=== PATIENT | male | born 1965 | race Hispanic/Latino ===

== ENCOUNTER 2021-08-27 06:25 | Inpatient (IN) | payer SELFPAY ==
--- NOTE | 2021-08-27 07:04 | EDM.PDOC ---
ED HPI GENERAL MEDICAL PROBLEM - General Chief Complaint: Respiratory Problem Stated Complaint: [facility] AMB Time Seen by Provider: 08/27/21 07:04 Source of Information: Reports: Patient History Limitations: Reports: No Limitations - History of Present Illness INITIAL COMMENTS - FREE TEXT/NARRATIVE: 56-year-old male of [place] descent presents to the ED feeling ill he states for the last 25 days. It is hard to correlate when his actual symptoms started with fever chills headache. He states initially he did have a headache and had some diarrhea. Cough started within 3 days and he continues to cough with minimal sputum production. White in color. Complete loss of appetite with weight loss. He feels very thirsty lightheaded and dizzy upon standing. Generalized weakness. Still has generalized body aches and fever. No further nausea vomiting or diarrhea. O2 sats upon arrival were 81% on room air. He works as a national dedicated truck driver hauling cattle. He is unvaccinated. Onset: Unknown/Unsure (Difficult to pin down for sure when he developed symptoms of COVID-19 illness.) Duration: Day(s):, Getting Worse Location: Reports: Chest (Chest congestion with paroxysmal intermittent cough minimally producing white sputum), Generalized, Other (Generalized weakness anorexia). Denies: Head (No headache) Quality: Reports: Ache, Throbbing Severity: Moderate Improves with: Reports: None Worsens with: Reports: Movement Context: Reports: Other (Spontaneous occurrence of illness.). Denies: Activity, Exercise, Lifting, Sick Contact, Trauma Associated Symptoms: Reports: Fever/Chills ( He is unmarried and no one at home is ill.), Headaches, Loss of Appetite, Malaise, Shortness of Breath, Weakness. Denies: No Other Symptoms, Nausea/Vomiting, Rash, Seizure Treatments [employer]EL[employer]: Reports: Acetaminophen, Oxygen - Related Data Allergies Allergy/AdvReac Type Severity Reaction Status Date / Time No Known Allergies Allergy Verified 08/27/21 06:42 Home Meds: Home Meds . [No Known Home Meds] 08/23/14 [History] Past Medical History - Past Health History Medical/Surgical History: Denies Medical/Surgical History HEENT History: Reports: None Cardiovascular History: Reports: None Respiratory History: Reports: None Gastrointestinal History: Reports: None Genitourinary History: Reports: None Musculoskeletal History: Reports: None Neurological History: Reports: None Psychiatric History: Reports: None Endocrine/Metabolic History: Reports: None Hematologic History: Reports: None Immunologic History: Reports: None Oncologic (Cancer) History: Reports: None Dermatologic History: Reports: None - Infectious Disease History Infectious Disease History: Reports: None - Past Surgical History Head Surgeries/Procedures: Reports: None Male Surgical History: Reports: None Social & Family History - Family History Family Medical History: No Pertinent Family History - Tobacco Use Tobacco Use Status *Q: Never Tobacco User - Caffeine Use Caffeine Use: Reports: Soda - Recreational Drug Use Recreational Drug Use: No - Living Situation & Occupation Living situation: Reports: Single Occupation: Unemployed ED ROS GENERAL - Review of Systems Review Of Systems: See Below Constitutional: Reports: Fever, Chills, Malaise, Weakness, Fatigue, Decreased Appetite, Weight Loss HEENT: Reports: Throat Pain Respiratory: Reports: Shortness of Breath, Cough, Sputum (Occasional white sputum production). Denies: Wheezing, Pleuritic Chest Pain Cardiovascular: Reports: Dyspnea on Exertion, Lightheadedness. Denies: Chest Pain, Claudication, Edema, Orthopnea, Palpitations Endocrine: Reports: Fatigue GI/Abdominal: Reports: Diarrhea (Diarrhea initial illness but not now.), Decreased Appetite, Nausea (Occasional nausea). Denies: Vomiting : Reports: Other (Urine is dark nicole in color) Musculoskeletal: Reports: Muscle Pain (Generalized myalgia particular upper neck muscles low back and thighs) Skin: Reports: No Symptoms Neurological: Reports: Dizziness, Weakness. Denies: Headache, Syncope Psychiatric: Reports: No Symptoms ED EXAM, GENERAL - Physical Exam Exam: See Below Exam Limited By: Language Barrier (Mild language barrier. This patient is [place] descent but he understands [place]ese very well) General Appearance: Alert, WD/WN, Moderate Distress, Other (He is very warm to palpation. Nurses recorded temperature is 36.4 but he feels much warmer than this. Heart rate is 110 and sinus at the bedside. Respiratory is 26 to 30/min with O2 sats of 81 to 86% on room air. He arrives with a nonrebreather mask placed by paramedics at 15 L to maintain sats ) Eye Exam: Bilateral Eye: Normal Inspection, PERRL Ears: Normal TMs Throat/Mouth: Other (Diffuse mild erythema of the oropharynx without exudate.) Head: Atraumatic, Normocephalic Neck: Normal Inspection, Supple, Non-Tender, Full Range of Motion. No: Carotid Bruit, Lymphadenopathy (L), Lymphadenopathy (R) Respiratory/Chest: Lungs Clear, Normal Breath Sounds, No Accessory Muscle Use, Respiratory Distress (Tachypnea at rest. Hypoxia on room air.), Decreased Breath Sounds (Mildly decreased breath sounds to the) Cardiovascular: Normal Peripheral Pulses, No Edema, No Gallop (Sinus tachycardia), No Murmur ( posterior 20% of the lung stokes bilaterally.), No Rub, Tachycardia. No: Regular Rate, Rhythm Peripheral Pulses: 3+: Carotid (L), Carotid (R), Posterior Tibial (L), Posterior Tibial (R), Dorsalis Pedis (L), Dorsalis Pedis (R) GI/Abdominal: Normal Bowel Sounds, Soft, Non-Tender, No Organomegaly, No Mass, Pelvis Stable, Other (No surgical scars) (Male) Exam: No Hernia Back Exam: Normal Inspection, Full Range of Motion. No: CVA Tenderness (L), CVA Tenderness (R) Extremities: Normal Inspection, Normal Range of Motion, Non-Tender, No Pedal Edema Neurological: Alert, Oriented, CN II-XII Intact, Normal Cognition, No Motor/Sensory Deficits Psychiatric: Anxious Skin Exam: Warm, Dry, Intact, Normal Color, No Rash #1 Interpretation EKG Date: 08/27/21 Time: 07:25 Rhythm: Other (Sinus tachycardia) Rate (Beats/Min): 103 [place]: Normal P-Wave: Present QRS: Other (Early R wave transition consider right ventricular hypertrophy versus septal hypertrophy pattern.) ST-T: Other (For culture interpret aVF lead due to very small amplitude) QT: Prolonged (Mildly prolonged) EKG Interpretation Comments: Abnormal ECG Course - Vital Signs Last Recorded V/S: Last Vital Signs Temp 36.4 C 08/27/21 18:39 Pulse 80 08/27/21 18:39 Resp 39 H 08/27/21 18:39 BP 136/94 H 08/27/21 18:39 Pulse Ox 91 L 08/27/21 18:39 - Orders/Labs/Meds Orders: Active Orders 24 hr Category Date Time Status Sodium Chloride 0.9% [Saline Flush] Med 08/27/21 08:05 Active 10 ml FLUSH ONETIME PRN Medication Orders Acetaminophen (Acetaminophen 325 Mg Tab) 650 mg PO Q4H PRN PRN Reason: Pain (Mild 1-3)/fever Albuterol/Ipratropium (Albuterol/Ipratropium 3.0-0.5 Mg/3 Ml Neb Soln) 3 ml NEB Q4H PRN PRN Reason: Shortness Of Breath/wheezing Last Admin: 08/27/21 16:18 Dose: 3 ml Documented by: JERE Apixaban (Apixaban 5 Mg Tab) 10 mg PO BID [facility] Baricitinib (Baricitinib 2 Mg Tab) 4 mg PO Q24H [facility] Stop: 09/09/21 15:01 Last Admin: 08/27/21 16:37 Dose: 4 mg Documented by: LAN Dexamethasone (Dexamethasone 4 Mg Tab) 6 mg PO DAILY [facility] Docusate Sodium (Docusate Sodium 100 Mg Cap) 100 mg PO BID PRN PRN Reason: Constipation Remdesivir 100 mg/ Sodium (Chloride) 100 mls @ 100 mls/hr IV Q24H [facility] Stop: 08/31/21 10:59 Ceftriaxone Sodium 2 gm/ (Sodium Chloride) 100 mls @ 200 mls/hr IV Q24H [facility] Last Admin: 08/27/21 16:29 Dose: 200 mls/hr Documented by: LAN Sodium Chloride (Normal Saline) 1,000 mls @ 75 mls/hr IV ASDIRECTED [facility] Last Admin: 08/27/21 18:54 Dose: 75 mls/hr Documented by: LAN Morphine Sulfate (Morphine 2 Mg/Ml Syringe) 2 mg IVPUSH Q2H PRN PRN Reason: Pain (severe 7-10) Stop: 08/28/21 13:10 Ondansetron HCl (Ondansetron 4 Mg Tab.Dis) 4 mg PO Q4H PRN PRN Reason: nausea, able to take PO Oxycodone HCl (Oxycodone 5 Mg Tab) 5 mg PO Q4H PRN PRN Reason: Pain (moderate 4-6) Sodium Chloride (Sodium Chloride 0.9% 10 Ml Syringe) 10 ml FLUSH ONETIME PRN PRN Reason: IV FLUSH Last Admin: 08/27/21 08:49 Dose: 10 ml Documented by: MARIA E Temazepam (Temazepam 15 Mg Cap) 15 mg PO BEDTIME PRN PRN Reason: Sleep Labs: Laboratory Tests 08/27/21 08/27/21 08/27/21 Range/Units 06:40 06:42 06:42 WBC 10.41 H (4.23-9.07) K/mm3 RBC 5.38 (4.63-6.08) M/mm3 Hgb 15.9 (13.7-17.5) gm/dl Hct 45.9 (40.1-51.0) % MCV 85.3 (79.0-92.2) fl MCH 29.6 (25.7-32.2) pg MCHC 34.6 (32.2-35.5) g/dl RDW Std Deviation 44.0 H (35.1-43.9) fL Plt Count 316 (163-337) K/mm3 MPV 10.1 (9.4-12.3) fl Neut % (Auto) 88.7 H (34.0-67.9) % Lymph % (Auto) 7.2 L (21.8-53.1) % Hendricks % (Auto) 2.6 L (5.3-12.2) % Eos % (Auto) 0.8 (0.8-7.0) Baso % (Auto) 0.2 (0.1-1.2) % Neut # (Auto) 9.24 H (1.78-5.38) K/mm3 Lymph # (Auto) 0.75 L (1.32-3.57) K/mm3 Hendricks # (Auto) 0.27 L (0.30-0.82) K/mm3 Eos # (Auto) 0.08 (0.04-0.54) K/mm3 Baso # (Auto) 0.02 (0.01-0.08) K/mm3 Manual Slide Review Abnormal smear D-Dimer, Quantitative (0.19-0.50) mg/L Puncture Site ABG pH (7.35-7.45) ABG pCO2 (35.0-45.0) mmHg ABG pO2 (80.0-100.0) mmHg ABG HCO3 (22.0-26.0) meq/L ABG O2 Saturation (96.0-97.0) % ABG Base Excess (-2-2.0) Antonio Test A-a Gradient mmHg O2 Delivery Device Oxygen Flow Rate FiO2 (21.00-100.00) % Sodium 133 L (136-145) mEq/L Potassium 3.7 (3.5-5.1) mEq/L Chloride 98 (98-107) mEq/L Carbon Dioxide 26 (21-32) mEq/L Anion Gap 12.7 (5-15) BUN 20 H (7-18) mg/dL Creatinine 1.1 (0.7-1.3) mg/dL Est Cr Clr Drug Dosing 70.94 mL/min Estimated GFR (MDRD) > 60 (>60) mL/min BUN/Creatinine Ratio 18.2 H (14-18) Glucose 133 H (70-99) mg/dL Lactic Acid (0.4-2.0) mmol/L Calcium 8.2 L (8.5-10.1) mg/dL Magnesium 2.5 H (1.8-2.4) mg/dL Total Bilirubin 0.9 (0.2-1.0) mg/dL AST 68 H (15-37) U/L ALT 83 H (16-63) U/L Alkaline Phosphatase 61 (46-116) U/L Lactate Dehydrogenase 697 H (85-227) U/L Troponin I < 0.017 (0.00-0.056) ng/mL C-Reactive Protein 20.3 H* (<1.0) mg/dL NT-Pro-B Natriuret Pep (0-125) pg/mL Total Protein 7.6 (6.4-8.2) g/dl Albumin 2.4 L (3.4-5.0) g/dl Globulin 5.2 gm/dL Albumin/Globulin Ratio 0.5 L (1-2) Influenza Type A RNA Negative (NEGATIVE) Influenza Type B RNA Negative (NEGATIVE) SARS-CoV-2 RNA (REBECCA) Positive H (NEGATIVE) 08/27/21 08/27/21 08/27/21 Range/Units 06:42 06:42 07:15 WBC (4.23-9.07) K/mm3 RBC (4.63-6.08) M/mm3 Hgb (13.7-17.5) gm/dl Hct (40.1-51.0) % MCV (79.0-92.2) fl MCH (25.7-32.2) pg MCHC (32.2-35.5) g/dl RDW Std Deviation (35.1-43.9) fL Plt Count (163-337) K/mm3 MPV (9.4-12.3) fl Neut % (Auto) (34.0-67.9) % Lymph % (Auto) (21.8-53.1) % Hendricks % (Auto) (5.3-12.2) % Eos % (Auto) (0.8-7.0) Baso % (Auto) (0.1-1.2) % Neut # (Auto) (1.78-5.38) K/mm3 Lymph # (Auto) (1.32-3.57) K/mm3 Hendricks # (Auto) (0.30-0.82) K/mm3 Eos # (Auto) (0.04-0.54) K/mm3 Baso # (Auto) (0.01-0.08) K/mm3 Manual Slide Review D-Dimer, Quantitative 14.22 H (0.19-0.50) mg/L Puncture Site ABG pH (7.35-7.45) ABG pCO2 (35.0-45.0) mmHg ABG pO2 (80.0-100.0) mmHg ABG HCO3 (22.0-26.0) meq/L ABG O2 Saturation (96.0-97.0) % ABG Base Excess (-2-2.0) Antonio Test A-a Gradient mmHg O2 Delivery Device Oxygen Flow Rate FiO2 (21.00-100.00) % Sodium (136-145) mEq/L Potassium (3.5-5.1) mEq/L Chloride (98-107) mEq/L Carbon Dioxide (21-32) mEq/L Anion Gap (5-15) BUN (7-18) mg/dL Creatinine (0.7-1.3) mg/dL Est Cr Clr Drug Dosing mL/min Estimated GFR (MDRD) (>60) mL/min BUN/Creatinine Ratio (14-18) Glucose (70-99) mg/dL Lactic Acid 2.1 H* (0.4-2.0) mmol/L Calcium (8.5-10.1) mg/dL Magnesium (1.8-2.4) mg/dL Total Bilirubin (0.2-1.0) mg/dL AST (15-37) U/L ALT (16-63) U/L Alkaline Phosphatase (46-116) U/L Lactate Dehydrogenase (85-227) U/L Troponin I (0.00-0.056) ng/mL C-Reactive Protein (<1.0) mg/dL NT-Pro-B Natriuret Pep 74 (0-125) pg/mL Total Protein (6.4-8.2) g/dl Albumin (3.4-5.0) g/dl Globulin gm/dL Albumin/Globulin Ratio (1-2) Influenza Type A RNA (NEGATIVE) Influenza Type B RNA (NEGATIVE) SARS-CoV-2 RNA (REBECCA) (NEGATIVE) 08/27/21 Range/Units 08:29 WBC (4.23-9.07) K/mm3 RBC (4.63-6.08) M/mm3 Hgb (13.7-17.5) gm/dl Hct (40.1-51.0) % MCV (79.0-92.2) fl MCH (25.7-32.2) pg MCHC (32.2-35.5) g/dl RDW Std Deviation (35.1-43.9) fL Plt Count (163-337) K/mm3 MPV (9.4-12.3) fl Neut % (Auto) (34.0-67.9) % Lymph % (Auto) (21.8-53.1) % Hendricks % (Auto) (5.3-12.2) % Eos % (Auto) (0.8-7.0) Baso % (Auto) (0.1-1.2) % Neut # (Auto) (1.78-5.38) K/mm3 Lymph # (Auto) (1.32-3.57) K/mm3 Hendricks # (Auto) (0.30-0.82) K/mm3 Eos # (Auto) (0.04-0.54) K/mm3 Baso # (Auto) (0.01-0.08) K/mm3 Manual Slide Review D-Dimer, Quantitative (0.19-0.50) mg/L Puncture Site Rt radial ABG pH 7.49 H (7.35-7.45) ABG pCO2 32.8 L (35.0-45.0) mmHg ABG pO2 58.0 L (80.0-100.0) mmHg ABG HCO3 24.8 (22.0-26.0) meq/L ABG O2 Saturation 91.1 L (96.0-97.0) % ABG Base Excess 2.5 H (-2-2.0) Antonio Test Positive A-a Gradient 471 mmHg O2 Delivery Device Hiflow nasal cannula Oxygen Flow Rate 60.0 FiO2 80.00 (21.00-100.00) % Sodium (136-145) mEq/L Potassium (3.5-5.1) mEq/L Chloride (98-107) mEq/L Carbon Dioxide (21-32) mEq/L Anion Gap (5-15) BUN (7-18) mg/dL Creatinine (0.7-1.3) mg/dL Est Cr Clr Drug Dosing mL/min Estimated GFR (MDRD) (>60) mL/min BUN/Creatinine Ratio (14-18) Glucose (70-99) mg/dL Lactic Acid (0.4-2.0) mmol/L Calcium (8.5-10.1) mg/dL Magnesium (1.8-2.4) mg/dL Total Bilirubin (0.2-1.0) mg/dL AST (15-37) U/L ALT (16-63) U/L Alkaline Phosphatase (46-116) U/L Lactate Dehydrogenase (85-227) U/L Troponin I (0.00-0.056) ng/mL C-Reactive Protein (<1.0) mg/dL NT-Pro-B Natriuret Pep (0-125) pg/mL Total Protein (6.4-8.2) g/dl Albumin (3.4-5.0) g/dl Globulin gm/dL Albumin/Globulin Ratio (1-2) Influenza Type A RNA (NEGATIVE) Influenza Type B RNA (NEGATIVE) SARS-CoV-2 RNA (REBECCA) (NEGATIVE) Meds: Medications Generic Name Dose Route Start Last Admin Trade Name Freq PRN Reason Stop Dose Admin Acetaminophen 650 mg 08/27/21 13:10 Acetaminophen 325 Mg Tab PO Q4H PRN Pain (Mild 1-3)/fever Albuterol/Ipratropium 3 ml 08/27/21 13:10 08/27/21 16:18 Albuterol/Ipratropium 3.0-0.5 Mg/3 Ml Neb Soln NEB 3 ml Q4H PRN Administration Shortness Of Breath/wheezing Apixaban 10 mg 08/27/21 21:00 Apixaban 5 Mg Tab PO BID AMBERLY Baricitinib 4 mg 08/27/21 15:00 08/27/21 16:37 Baricitinib 2 Mg Tab PO 09/09/21 15:01 4 mg Q24H AMBERLY Administration Dexamethasone 6 mg 08/28/21 09:00 Dexamethasone 4 Mg Tab PO DAILY AMBERLY Docusate Sodium 100 mg 08/27/21 13:10 Docusate Sodium 100 Mg Cap PO BID PRN Constipation Remdesivir 100 mg/ Sodium 100 mls @ 100 mls/hr 08/28/21 10:00 Chloride IV 08/31/21 10:59 Q24H AMBERLY Ceftriaxone Sodium 2 gm/ 100 mls @ 200 mls/hr 08/27/21 15:00 08/27/21 16:29 Sodium Chloride IV 200 mls/hr Q24H AMBERLY Administration Sodium Chloride 1,000 mls @ 75 mls/hr 08/27/21 18:45 08/27/21 18:54 Normal Saline IV 75 mls/hr ASDIRECTED AMBERLY Administration Morphine Sulfate 2 mg 08/27/21 13:10 Morphine 2 Mg/Ml Syringe IVPUSH 08/28/21 13:10 Q2H PRN Pain (severe 7-10) Ondansetron HCl 4 mg 08/27/21 13:10 Ondansetron 4 Mg Tab.Dis PO Q4H PRN nausea, able to take PO Oxycodone HCl 5 mg 08/27/21 13:10 Oxycodone 5 Mg Tab PO Q4H PRN Pain (moderate 4-6) Sodium Chloride 10 ml 08/27/21 08:05 08/27/21 08:49 Sodium Chloride 0.9% 10 Ml Syringe FLUSH 10 ml ONETIME PRN Administration IV FLUSH Temazepam 15 mg 08/27/21 13:10 Temazepam 15 Mg Cap PO BEDTIME PRN Sleep Discontinued Medications Generic Name Dose Route Start Last Admin Trade Name Freq PRN Reason Stop Dose Admin Acetaminophen 650 mg 08/27/21 08:06 08/27/21 08:22 Acetaminophen 325 Mg Tab PO 08/27/21 08:07 650 mg NOW ONE Administration Apixaban 10 mg 10/27/21 09:21 08/27/21 10:08 Apixaban 5 Mg Tab PO 08/27/21 09:22 10 mg ONETIME ONE Administration Dexamethasone 6 mg 08/27/21 08:35 08/27/21 09:20 Dexamethasone 4 Mg/Ml 5 Ml Mdv IV 08/27/21 08:36 6 mg ONETIME ONE Administration Dextrose/Sodium Chloride 1,000 mls @ 250 mls/hr 08/27/21 07:15 08/27/21 08:22 Dextrose 5%-Normal Saline IV 250 mls/hr ASDIRECTED AMBERLY Administration Sodium Chloride 100 mls @ 75 mls/hr 08/27/21 08:15 08/27/21 08:50 Normal Saline IV 75 mls/hr ASDIRECTED AMBERLY Administration Remdesivir 200 mg/ Sodium 250 mls @ 250 mls/hr 08/27/21 08:36 08/27/21 10:20 Chloride IV 08/27/21 08:37 250 mls/hr ONETIME ONE Administration Iopamidol 100 ml 08/27/21 08:05 08/27/21 08:49 Iopamidol 755 Mg/Ml 100 Ml Bottle IVPUSH 08/27/21 08:06 100 ml ONETIME ONE Administration - Radiology Interpretation Free Text/Narrative:: 56-year-old male presents to the ED with acute illness. He came to the ED due to hypoxia. Arrived [facility] with O2 sats of 81 to 82% upon their arrival. They placed him on a nonrebreather mask at 15 L/min to achieve O2 sats of 91 to 94%. Patient is febrile. Has a paroxysmal cough occasionally producing whitish sputum. He states that initial onset of illness was headache and some diarrhea but none now. He has a markedly diminished appetite. Feels lightheaded and dizzy upon standing. Clinically he is still febrile on examination. Plan 1 view chest x-ray COVID-19 screen routine labs including D- dimer to be done. IV will be D5 normal saline to 50 mils per hour. He appears clinically volume depleted. - Re-Assessments/Exams Free Text/Narrative Re-Assessment/Exam: 08/27/21 07:40 White count is mildly elevated at 10.41. The differential shows 88.7% neutrophils hemoglobin 15.9 with hematocrit of 45.9. Platelet count 316,000. D-dimer is markedly elevated at 14.22. Sodium is 133 with a potassium of 3.7. Chloride is 90 with a bicarb of 26. Anion gap is 12.7. BUN is 20 with a creatinine of 1.1 and a GFR greater than 60. Glucose is 133 calcium is 8.2 magnesium is 2.5 with liver function reveals bilirubin to be 0.9 with an AST of 68 and an ALT of 83. Alkaline phosphatase is normal at 61. LDH is pending. Troponin I is less than 0.017 C-reactive protein is 20.3. Total protein 7.6 with an albumin fraction of 2.4 08/27/21 07:49 portable chest x-ray reveals diffuse increased density seen throughout both sides of the chest compatible with COVID-19 pneumonia. Heart size and mediastinum are within normal limits. Bony structures show nothing acute. Surgical clips are noted from prior cholecystectomy. 08/27/21 08:02 lactic acid is 2.1. I have ordered ABGs. He will be switched to high flow oxygen starting at 40%. Patient is going to require admission to the hospital. 08/27/21 08:35 LDH returned elevated at 697. COVID-19 screen is positive. Influenza screen negative. Patient will be given dexamethasone [address] art remdesivir 200 mg IV. 08/27/21 09:18 CT pulmonary angiogram has been completed. Filling defects combined with pulmonary emboli are seen within the distal right main pulmonary artery extending into the segmental and subsegmental branches within the right lower lung. A sending aorta shows mild ectasia AP dimension is 3.8 cm. Increased lymph nodes are seen within the mediastinum and hilar regions most likely related to parenchymal disease. No pericardial thickening is seen. Minimal hiatal hernia is noted. Surgical clips are seen from prior cholecystectomy. Lung window settings were reviewed which shows diffuse increased density throughout both sides of the chest compared with severe Covid pneumonia. Bone window settings were reviewed which show scattered disc space narrowing and some mild spurring within the spine. No acute osseous abnormalities are noted. Patient will be started on Eliquis 10 mg once daily. 08/27/21 09:48 ABGs revealed a pH of 7.49 with a PCO2 of 32.8 i.e. he has been on retainer. PO2 is 58.0 with a bicarb of 24.8 oxygen saturations were 91.1 on high flow cannula at 60 L/min FiO2 of 80%. O2 sats in the ED are maintained around 90%. 08/27/21 13:04 patient's O2 sats remained 92 to 93% with heart rate of 84 and sinus. Blood pressure is 135/85. A bed has become available in our intensive care unit and he will be admitted to the bed per hospitalist Dr. Rodolfo Garcia. Departure - Departure Time of Disposition: 16:20 Disposition: Admitted As Inpatient 67 Condition: Critical Clinical Impression: Pneumonia due to COVID-19 virus, Hypoxia, Lactic acidosis Pulmonary embolism Qualifiers: Pulmonary embolism type: multiple subsegmental (without acute cor pulmonale) Qualified Code(s): I26.94 - Multiple subsegmental pulmonary emboli without acute cor pulmonale - Discharge Information *PRESCRIPTION DRUG MONITORING PROGRAM REVIEWED*: Not Applicable *COPY OF PRESCRIPTION DRUG MONITORING REPORT IN PATIENT RODY: Not Applicable Sepsis Event Note (ED) - Evaluation Sepsis Screening Result: No Definite Risk - Focused Exam Vital Signs: Vital Signs Pulse Resp BP Pulse Ox 08/27/21 13:00 83 34 H 128/89 91 L 08/27/21 11:44 87 45 H 129/84 88 L 08/27/21 10:30 84 36 H 120/81 91 L 08/27/21 10:12 86 38 H 125/81 87 L 08/27/21 08:30 96 42 H 127/83 91 L - My Orders Last 24 Hours: My Active Orders 08/27/21 08:05 Sodium Chloride 0.9% [Saline Flush] 10 ml FLUSH ONETIME PRN - Assessment/Plan Last 24 Hours: My Active Orders 08/27/21 08:05 Sodium Chloride 0.9% [Saline Flush] 10 ml FLUSH ONETIME PRN
[2021-08-27] MEDS ORDERED: Dextrose 5%-0.9% NaCl 1,000 ML IV SCH (07:15)
--- NOTE | 2021-08-27 07:41 | CR ---
Chest: Portable view of the chest was obtained. Comparison: No prior chest x-ray. Diffuse increased density is seen throughout both sides of the chest. Heart size and mediastinum are within normal limits. Bony structures show nothing acute. Surgical clips are noted from prior cholecystectomy. Impression: 1. Diffuse increased density throughout both sides of the chest which is suspicious for diffuse COVID pneumonia. Please correlate. Diagnostic code #3
[2021-08-27 07:54] LABS: CORONAVIRUS COVID-19 NAA POSITIVE (NEGATIVE)
[2021-08-27] MEDS ORDERED: Sodium Chloride 0.9% 10 ML Syringe FLUSH PRN (08:05)
[2021-08-27] MEDS ORDERED: Iopamidol 755 Mg/ML 100 ML Bottle IVPUSH ONE (08:05)
[2021-08-27] MEDS ORDERED: Acetaminophen 325 MG Tab PO ONE (08:06)
[2021-08-27] MEDS ORDERED: Sodium Chloride 0.9% 100 ML IV SCH (08:15)
[2021-08-27] MEDS ORDERED: Dexamethasone 4 MG/ML 5 ML MDV IV ONE (08:35)
[2021-08-27] MEDS ORDERED: REMDESIVIR 200 MG in Sodium Chloride 0.9% 250 ML IV ONE (08:36)
--- NOTE | 2021-08-27 09:05 | CT ---
CT chest Technique: Multiple axial sections through the chest were obtained. Intravenous contrast was utilized. Study has been performed as a pulmonary angiogram protocol. Comparison: Chest x-ray performed earlier on the same day (7:07 AM). Findings: Filling defects compatible with pulmonary emboli are seen within the distal right main pulmonary artery extending into the segmental and subsegmental branches within the right lower lung. Ascending aorta shows mild ectasia. AP dimension is 3.8 cm. Increased lymph nodes are seen within the mediastinum and hilar regions most likely relating to parenchymal disease. No pericardial thickening is seen. Minimal hiatal hernia is noted. Surgical clips are seen from prior cholecystectomy. Lung window settings were reviewed which shows diffuse increased density throughout both sides of the chest compatible with severe COVID pneumonia. Bone window settings were reviewed which show scattered disc space narrowing and mild spurring within the spine. No acute osseous abnormality is appreciated. Impression: 1. Pulmonary embolism within the distal right main pulmonary artery, segmental and subsegmental branches within the right lower lung. 2. Ectasia of the ascending aorta. 3. Severe findings of COVID pneumonia. 4. Other nonacute findings as noted above. Diagnostic code #5
[2021-08-27] MEDS ORDERED: Apixaban 5 MG Tab PO ONE (09:21)
[2021-08-27] MEDS ORDERED: Morphine 2 MG/ML SYRINGE IVPUSH PRN (13:10)
[2021-08-27] MEDS ORDERED: Ondansetron 4 MG Tab.DIS PO PRN (13:10)
[2021-08-27] MEDS ORDERED: Acetaminophen 325 MG Tab PO PRN (13:10)
[2021-08-27] MEDS ORDERED: Temazepam 15 MG Cap PO PRN (13:10)
[2021-08-27] MEDS ORDERED: Docusate Sodium 100 MG Cap PO PRN (13:10)
[2021-08-27] MEDS ORDERED: oxyCODONE 5 MG Tab PO PRN (13:10)
--- NOTE | 2021-08-27 13:16 | PCM.HP.2 ---
H&P History of Present Illness - General Date of Service: 08/27/21 Admit Problem/Dx: Admission Diagnosis/Problem Admission Diagnosis/Problem Pneumonia Source of Information: Patient History Limitations: Reports: No Limitations - History of Present Illness Initial Comments - Free Text/Narative: The patient is a 56-year-old gentleman who had presented to the emergency department with acute shortness of breath, fever, chills and reportedly had some diarrhea. The patient says that he started to get sick about 25 days ago then had improved somewhat and then his condition worsened rapidly over the past 2 days. The patient had oxygen saturations on room air at 81% upon arrival in the emergency department. He is tested positive for COVID-19. The patient also reports that he has had dizziness and lightheadedness as well as generalized weakness. He has had no specific aggravating or relieving factors. The patient has not been around any sick contacts. The patient has been working on a ranch. Denies tobacco use and is not taking any home medications. Onset of Symptoms: Reports: Gradual Duration of Symptoms: Reports: Day(s): Location: Reports: Chest, Generalized Quality: Reports: Ache, Dull Severity: Mild Improves with: Reports: Other (Oxygen support) Worsens with: Reports: Breathing Context: Denies: Sick Contact Associated Symptoms: Reports: cough w sputum, Fever/Chills, Nausea/Vomiting - Related Data Allergies/Adverse Reactions: Allergies Allergy/AdvReac Type Severity Reaction Status Date / Time No Known Allergies Allergy Verified 08/27/21 06:42 Home Medications: Home Meds . [No Known Home Meds] 08/23/14 [History] Past Medical History - Past Health History Medical/Surgical History: Denies Medical/Surgical History HEENT History: Reports: None Cardiovascular History: Reports: None Respiratory History: Reports: None Gastrointestinal History: Reports: None Genitourinary History: Reports: None Musculoskeletal History: Reports: None Neurological History: Reports: None Psychiatric History: Reports: None Endocrine/Metabolic History: Reports: None Hematologic History: Reports: None Immunologic History: Reports: None Oncologic (Cancer) History: Reports: None Dermatologic History: Reports: None - Infectious Disease History Infectious Disease History: Reports: None - Past Surgical History Head Surgeries/Procedures: Reports: None Male Surgical History: Reports: None Social & Family History - Family History Family Medical History: No Pertinent Family History - Tobacco Use Tobacco Use Status *Q: Never Tobacco User - Caffeine Use Caffeine Use: Reports: Soda - Recreational Drug Use Recreational Drug Use: No - Living Situation & Occupation Living situation: Reports: Single Occupation: Unemployed H&P Review of Systems - Review of Systems: Review Of Systems: See Below General: Reports: Fever, Chills, Malaise HEENT: Reports: Headaches Pulmonary: Reports: Shortness of Breath, Cough, Sputum Cardiovascular: Reports: Dyspnea on Exertion Gastrointestinal: Reports: No Symptoms Genitourinary: Reports: No Symptoms Musculoskeletal: Reports: No Symptoms Skin: Reports: No Symptoms Psychiatric: Reports: No Symptoms Neurological: Reports: Dizziness Hematologic/Lymphatic: Reports: No Symptoms Immunologic: Reports: No Symptoms Exam - Exam Exam: See Below - Vital Signs Vital Signs: Last Vital Signs Temp 36.4 C 08/27/21 06:29 Pulse 87 08/27/21 11:44 Resp 45 H 08/27/21 11:44 BP 129/84 08/27/21 11:44 Pulse Ox 88 L 08/27/21 11:44 Weight: 81.647 kg - Exam Quality Assessment: Supplemental Oxygen, DVT Prophylaxis General: Alert, Oriented, Cooperative, Mild Distress HEENT: Conjunctiva Clear, EACs Clear, EOMI, Hearing Intact, PERRLA. No: Mucosa Moist & [employer] (Dry) Neck: Supple, Trachea Midline Lungs: Decreased Breath Sounds, Rales (Scattered, all lobes), Other (Tachypneic) Cardiovascular: Regular Rate, Regular Rhythm GI/Abdominal Exam: Normal Bowel Sounds, Soft, Non-Tender, No Distention (Male) Exam: Deferred Rectal (Males) Exam: Deferred Back Exam: Normal Inspection, Full Range of Motion Extremities: Normal Inspection, No Pedal Edema Skin: Warm, Dry, Intact Neurological: Cranial Nerves Intact, Normal Speech Neuro Extensive - Mental Status: Alert, Oriented x3 Neuro Extensive - Motor, Sensory, Reflexes: CN II-XII Intact, Normal Gait Psychiatric: Alert, Normal Affect, Normal Mood - Patient Data Lab Results Last 24 hrs: Laboratory Results - last 24 hr 08/27/21 08/27/21 08/27/21 Range/Units 06:40 06:42 06:42 WBC 10.41 H (4.23-9.07) K/mm3 RBC 5.38 (4.63-6.08) M/mm3 Hgb 15.9 (13.7-17.5) gm/dl Hct 45.9 (40.1-51.0) % MCV 85.3 (79.0-92.2) fl MCH 29.6 (25.7-32.2) pg MCHC 34.6 (32.2-35.5) g/dl RDW Std Deviation 44.0 H (35.1-43.9) fL Plt Count 316 (163-337) K/mm3 MPV 10.1 (9.4-12.3) fl Neut % (Auto) 88.7 H (34.0-67.9) % Lymph % (Auto) 7.2 L (21.8-53.1) % [place] % (Auto) 2.6 L (5.3-12.2) % Eos % (Auto) 0.8 (0.8-7.0) Baso % (Auto) 0.2 (0.1-1.2) % Neut # (Auto) 9.24 H (1.78-5.38) K/mm3 Lymph # (Auto) 0.75 L (1.32-3.57) K/mm3 [place] # (Auto) 0.27 L (0.30-0.82) K/mm3 Eos # (Auto) 0.08 (0.04-0.54) K/mm3 Baso # (Auto) 0.02 (0.01-0.08) K/mm3 Manual Slide Review Abnormal smear D-Dimer, Quantitative (0.19-0.50) mg/L Puncture Site ABG pH (7.35-7.45) ABG pCO2 (35.0-45.0) mmHg ABG pO2 (80.0-100.0) mmHg ABG HCO3 (22.0-26.0) meq/L ABG O2 Saturation (96.0-97.0) % ABG Base Excess (-2-2.0) Antonio Test A-a Gradient mmHg O2 Delivery Device Oxygen Flow Rate FiO2 (21.00-100.00) % Sodium 133 L (136-145) mEq/L Potassium 3.7 (3.5-5.1) mEq/L Chloride 98 (98-107) mEq/L Carbon Dioxide 26 (21-32) mEq/L Anion Gap 12.7 (5-15) BUN 20 H (7-18) mg/dL Creatinine 1.1 (0.7-1.3) mg/dL Est Cr Clr Drug Dosing 70.94 mL/min Estimated GFR (MDRD) > 60 (>60) mL/min BUN/Creatinine Ratio 18.2 H (14-18) Glucose 133 H (70-99) mg/dL Lactic Acid (0.4-2.0) mmol/L Calcium 8.2 L (8.5-10.1) mg/dL Magnesium 2.5 H (1.8-2.4) mg/dL Total Bilirubin 0.9 (0.2-1.0) mg/dL AST 68 H (15-37) U/L ALT 83 H (16-63) U/L Alkaline Phosphatase 61 (46-116) U/L Lactate Dehydrogenase 697 H (85-227) U/L Troponin I < 0.017 (0.00-0.056) ng/mL C-Reactive Protein 20.3 H* (<1.0) mg/dL NT-Pro-B Natriuret Pep (0-125) pg/mL Total Protein 7.6 (6.4-8.2) g/dl Albumin 2.4 L (3.4-5.0) g/dl Globulin 5.2 gm/dL Albumin/Globulin Ratio 0.5 L (1-2) Influenza Type A RNA Negative (NEGATIVE) Influenza Type B RNA Negative (NEGATIVE) SARS-CoV-2 RNA (REBECCA) Positive H (NEGATIVE) 08/27/21 08/27/21 08/27/21 Range/Units 06:42 06:42 07:15 WBC (4.23-9.07) K/mm3 RBC (4.63-6.08) M/mm3 Hgb (13.7-17.5) gm/dl Hct (40.1-51.0) % MCV (79.0-92.2) fl MCH (25.7-32.2) pg MCHC (32.2-35.5) g/dl RDW Std Deviation (35.1-43.9) fL Plt Count (163-337) K/mm3 MPV (9.4-12.3) fl Neut % (Auto) (34.0-67.9) % Lymph % (Auto) (21.8-53.1) % [place] % (Auto) (5.3-12.2) % Eos % (Auto) (0.8-7.0) Baso % (Auto) (0.1-1.2) % Neut # (Auto) (1.78-5.38) K/mm3 Lymph # (Auto) (1.32-3.57) K/mm3 [place] # (Auto) (0.30-0.82) K/mm3 Eos # (Auto) (0.04-0.54) K/mm3 Baso # (Auto) (0.01-0.08) K/mm3 Manual Slide Review D-Dimer, Quantitative 14.22 H (0.19-0.50) mg/L Puncture Site ABG pH (7.35-7.45) ABG pCO2 (35.0-45.0) mmHg ABG pO2 (80.0-100.0) mmHg ABG HCO3 (22.0-26.0) meq/L ABG O2 Saturation (96.0-97.0) % ABG Base Excess (-2-2.0) Antonio Test A-a Gradient mmHg O2 Delivery Device Oxygen Flow Rate FiO2 (21.00-100.00) % Sodium (136-145) mEq/L Potassium (3.5-5.1) mEq/L Chloride (98-107) mEq/L Carbon Dioxide (21-32) mEq/L Anion Gap (5-15) BUN (7-18) mg/dL Creatinine (0.7-1.3) mg/dL Est Cr Clr Drug Dosing mL/min Estimated GFR (MDRD) (>60) mL/min BUN/Creatinine Ratio (14-18) Glucose (70-99) mg/dL Lactic Acid 2.1 H* (0.4-2.0) mmol/L Calcium (8.5-10.1) mg/dL Magnesium (1.8-2.4) mg/dL Total Bilirubin (0.2-1.0) mg/dL AST (15-37) U/L ALT (16-63) U/L Alkaline Phosphatase (46-116) U/L Lactate Dehydrogenase (85-227) U/L Troponin I (0.00-0.056) ng/mL C-Reactive Protein (<1.0) mg/dL NT-Pro-B Natriuret Pep 74 (0-125) pg/mL Total Protein (6.4-8.2) g/dl Albumin (3.4-5.0) g/dl Globulin gm/dL Albumin/Globulin Ratio (1-2) Influenza Type A RNA (NEGATIVE) Influenza Type B RNA (NEGATIVE) SARS-CoV-2 RNA (REBECCA) (NEGATIVE) 08/27/21 Range/Units 08:29 WBC (4.23-9.07) K/mm3 RBC (4.63-6.08) M/mm3 Hgb (13.7-17.5) gm/dl Hct (40.1-51.0) % MCV (79.0-92.2) fl MCH (25.7-32.2) pg MCHC (32.2-35.5) g/dl RDW Std Deviation (35.1-43.9) fL Plt Count (163-337) K/mm3 MPV (9.4-12.3) fl Neut % (Auto) (34.0-67.9) % Lymph % (Auto) (21.8-53.1) % [place] % (Auto) (5.3-12.2) % Eos % (Auto) (0.8-7.0) Baso % (Auto) (0.1-1.2) % Neut # (Auto) (1.78-5.38) K/mm3 Lymph # (Auto) (1.32-3.57) K/mm3 [place] # (Auto) (0.30-0.82) K/mm3 Eos # (Auto) (0.04-0.54) K/mm3 Baso # (Auto) (0.01-0.08) K/mm3 Manual Slide Review D-Dimer, Quantitative (0.19-0.50) mg/L Puncture Site Rt radial ABG pH 7.49 H (7.35-7.45) ABG pCO2 32.8 L (35.0-45.0) mmHg ABG pO2 58.0 L (80.0-100.0) mmHg ABG HCO3 24.8 (22.0-26.0) meq/L ABG O2 Saturation 91.1 L (96.0-97.0) % ABG Base Excess 2.5 H (-2-2.0) Antonio Test Positive A-a Gradient 471 mmHg O2 Delivery Device [place] nasal cannula Oxygen Flow Rate 60.0 FiO2 80.00 (21.00-100.00) % Sodium (136-145) mEq/L Potassium (3.5-5.1) mEq/L Chloride (98-107) mEq/L Carbon Dioxide (21-32) mEq/L Anion Gap (5-15) BUN (7-18) mg/dL Creatinine (0.7-1.3) mg/dL Est Cr Clr Drug Dosing mL/min Estimated GFR (MDRD) (>60) mL/min BUN/Creatinine Ratio (14-18) Glucose (70-99) mg/dL Lactic Acid (0.4-2.0) mmol/L Calcium (8.5-10.1) mg/dL Magnesium (1.8-2.4) mg/dL Total Bilirubin (0.2-1.0) mg/dL AST (15-37) U/L ALT (16-63) U/L Alkaline Phosphatase (46-116) U/L Lactate Dehydrogenase (85-227) U/L Troponin I (0.00-0.056) ng/mL C-Reactive Protein (<1.0) mg/dL NT-Pro-B Natriuret Pep (0-125) pg/mL Total Protein (6.4-8.2) g/dl Albumin (3.4-5.0) g/dl Globulin gm/dL Albumin/Globulin Ratio (1-2) Influenza Type A RNA (NEGATIVE) Influenza Type B RNA (NEGATIVE) SARS-CoV-2 RNA (REBECCA) (NEGATIVE) Result Diagrams: 08/27/21 06:42 08/27/21 06:42 Sepsis Event Note - Evaluation Sepsis Screening Result: No Definite Risk - Focused Exam Vital Signs: Vital Signs Temp Pulse Resp BP Pulse Ox Pulse Ox 08/27/21 11:44 87 45 H 129/84 88 L 08/27/21 10:30 84 36 H 120/81 91 L 08/27/21 10:12 86 38 H 125/81 87 L 08/27/21 08:30 96 42 H 127/83 91 L 08/27/21 08:15 96 46 H 128/73 91 L 89 L 08/27/21 07:30 101 H 129/82 08/27/21 06:29 36.4 C 110 H 26 H 117/72 86 L - Problem List (1) Acute respiratory failure due to COVID-19 SNOMED Code(s): 859483079 ICD Code: U07.1 - COVID-19; J96.00 - ACUTE RESPIRATORY FAILURE, UNSP W HYPOXIA OR HYPERCAPNIA Status: Acute Priority: High Current Visit: Yes (2) Hypoxia SNOMED Code(s): 348532209 ICD Code: R09.02 - HYPOXEMIA Status: Acute Priority: High Current Visit: Yes (3) Lactic acidosis SNOMED Code(s): 63047817 ICD Code: E87.2 - ACIDOSIS Status: Acute Priority: High Current Visit: Yes (4) Pneumonia due to COVID-19 virus SNOMED Code(s): 531819882034713628 ICD Code: U07.1 - COVID-19; J12.82 - PNEUMONIA DUE TO CORONAVIRUS DISEASE 2019 Status: Acute Priority: High Current Visit: Yes (5) Pulmonary embolism SNOMED Code(s): 57174330 ICD Code: I26.99 - OTHER PULMONARY EMBOLISM WITHOUT ACUTE COR PULMONALE Status: Acute Priority: High Current Visit: Yes Qualifiers: Pulmonary embolism type: multiple subsegmental (without acute cor pulmonale) Qualified Code(s): I26.94 - Multiple subsegmental pulmonary emboli without acute cor pulmonale Problem List Initiated/Reviewed/Updated: Yes Orders Last 24hrs: Active Orders 24 hr Category Date Time Status Patient Status [ADT] Routine ADT 08/27/21 13:10 Ordered Cardiac Monitoring [RC] CONTINUOUS Care 08/27/21 13:10 Ordered Oxygen Therapy [RC] PRN Care 08/27/21 13:10 Ordered RT Aerosol Therapy [RC] ASDIRECTED Care 08/27/21 13:10 Ordered Up ad Jessica [RC] ASDIRECTED Care 08/27/21 13:10 Ordered VTE/DVT Education [RC] PER UNIT ROUTINE Care 08/27/21 13:10 Ordered Vital Signs [RC] Q4H Care 08/27/21 13:10 Ordered Regular Diet [DIET] Diet 08/27/21 Dinner Ordered C-REACTIVE PROTEIN [CHEM] AM Lab 08/28/21 05:11 Ordered CBC WITH AUTO DIFF [HEME] AM Lab 08/28/21 05:11 Ordered COMPREHENSIVE METABOLIC PN,CMP [CHEM] AM Lab 08/28/21 05:11 Ordered D-DIMER QUANTITATIVE [COAG] AM Lab 08/28/21 05:11 Ordered LACTIC ACID [CHEM] Stat Lab 08/27/21 13:06 Ordered MAGNESIUM [CHEM] AM Lab 08/28/21 05:11 Ordered Acetaminophen [TylenoL] Med 08/27/21 13:10 Ordered 650 mg PO Q4H PRN Albuterol/Ipratropium [DuoNeb 3.0-0.5 MG/3 ML] Med 08/27/21 13:10 Ordered 3 ml NEB Q4H PRN Baricitinib [Olumiant] Med 08/27/21 13:15 Ordered 4 mg PO DAILY Dextrose 5%-0.9% NaCl [Dextrose 5%-Normal Saline] 1,000 Med 08/27/21 07:15 Active ml IV ASDIRECTED Docusate Sodium [Colace] Med 08/27/21 13:10 Ordered 100 mg PO BID PRN Morphine Med 08/27/21 13:10 Ordered 2 mg IVPUSH Q2H PRN Ondansetron [Zofran ODT] Med 08/27/21 13:10 Ordered 4 mg PO Q4H PRN Remdesivir 100 mg Med 08/28/21 13:15 Ordered Sodium Chloride 0.9% [Normal Saline] 100 ml IV Q24H Sodium Chloride 0.9% [Normal Saline] 100 ml Med 08/27/21 08:15 Active IV ASDIRECTED Sodium Chloride 0.9% [Saline Flush] Med 08/27/21 08:05 Active 10 ml FLUSH ONETIME PRN Temazepam [Restoril] Med 08/27/21 13:10 Ordered 15 mg PO BEDTIME PRN cefTRIAXone [Rocephin] 2 gm Med 08/27/21 13:15 Ordered Sodium Chloride 0.9% [Normal Saline AdvBag] 100 ml IV Q24H dexAMETHasone Med 08/28/21 09:00 Ordered 6 mg PO DAILY oxyCODONE Med 08/27/21 13:10 Ordered 5 mg PO Q4H PRN Resuscitation Status Routine Resus Stat 08/27/21 13:10 Ordered Medication Orders Acetaminophen (Acetaminophen 325 Mg Tab) 650 mg PO Q4H PRN PRN Reason: Pain (Mild 1-3)/fever Albuterol/Ipratropium (Albuterol/Ipratropium 3.0-0.5 Mg/3 Ml Neb Soln) 3 ml NEB Q4H PRN PRN Reason: Shortness Of Breath/wheezing Baricitinib (Baricitinib 2 Mg Tab) 4 mg PO DAILY [facility] Dexamethasone (Dexamethasone 4 Mg Tab) 6 mg PO DAILY [facility] Docusate Sodium (Docusate Sodium 100 Mg Cap) 100 mg PO BID PRN PRN Reason: Constipation Dextrose/Sodium Chloride (Dextrose 5%-Normal Saline) 1,000 mls @ 250 mls/hr IV ASDIRECTED [facility] Last Admin: 08/27/21 08:22 Dose: 250 mls/hr Documented by: RIZWANA Sodium Chloride (Normal Saline) 100 mls @ 75 mls/hr IV ASDIRECTED [facility] Last Admin: 08/27/21 08:50 Dose: 75 mls/hr Documented by: MARIA E Remdesivir 100 mg/ Sodium (Chloride) 100 mls @ 100 mls/hr IV Q24H [facility] Stop: 08/31/21 14:14 Ceftriaxone Sodium 2 gm/ (Sodium Chloride) 100 mls @ 200 mls/hr IV Q24H [facility] Morphine Sulfate (Morphine 2 Mg/Ml Syringe) 2 mg IVPUSH Q2H PRN PRN Reason: Pain (severe 7-10) Stop: 08/28/21 13:10 Ondansetron HCl (Ondansetron 4 Mg Tab.Dis) 4 mg PO Q4H PRN PRN Reason: nausea, able to take PO Oxycodone HCl (Oxycodone 5 Mg Tab) 5 mg PO Q4H PRN PRN Reason: Pain (moderate 4-6) Sodium Chloride (Sodium Chloride 0.9% 10 Ml Syringe) 10 ml FLUSH ONETIME PRN PRN Reason: IV FLUSH Last Admin: 08/27/21 08:49 Dose: 10 ml Documented by: MARIA E Temazepam (Temazepam 15 Mg Cap) 15 mg PO BEDTIME PRN PRN Reason: Sleep Assessment/Plan Comment:: The patient is a 56-year-old gentleman who has COVID-19 pneumonia with acute respiratory failure. Admitted the patient to the intensive care unit on telemetry. I have reviewed the patient's chest x-ray and concerned about his work of breathing as well as possible ARDS. The patient will have his oxygen titrated to keep his saturations around 92%. The patient has been started on remdesivir in the emergency department and I started the patient on remdesivir 100 mg IV daily. Patient is also been started on dexamethasone 6 mg p.o. daily to start tomorrow. The patient also has been started on baricitinib 4 mg p.o. daily. The patient also has multiple subsegmental pulmonary emboli and he has been started on apixaban 10 mg p.o. twice daily. Repeat laboratory studies have been ordered for the morning. The patient will have regular diet as tolerated. RT will help the patient with incentive spirometer. I spoke with patient to provide information about baricitinib. I offered the "fax sheet for patients and parents/caregivers, for baricitinib" to read and review. I stated that therapy has been approved by an emergency use authorization process and has not fully been FDA reviewed or approved. I shared potential risks from the therapy including increased risk for serious infections, anaphylaxis, and reaction to medication. I discussed there are other potential treatment options that are currently not FDA approved to treat COVID-19. Offered opportunity to ask questions and all questions were answered. Patient voiced understanding and agreed to proceed with treatment. - Mortality Measure Prognosis:: Poor
[2021-08-27] MEDS: Albuterol/Ipratropium 3.0-0.5 MG/3 ML Neb Soln NEB PRN ×2 (16:18→20:42)
[2021-08-27] MEDS: cefTRIAXone 2 GM in Sodium Chloride 0.9% 100 ML IV SCH (16:29)
[2021-08-27] MEDS: Sodium Chloride 0.9% 1,000 ML IV SCH (18:54)
[2021-08-27] MEDS: Apixaban 5 MG Tab PO SCH (20:29)
[2021-08-28] MEDS: Albuterol/Ipratropium 3.0-0.5 MG/3 ML Neb Soln NEB PRN ×2 (05:50→14:21)
--- NOTE | 2021-08-28 06:58 | PCM.PN ---
- General Info Date of Service: 08/28/21 Admission Dx/Problem (Free Text): Acute respiratory failure due to COVID-19 pneumonia with bilateral pulmonary emboli. Subjective Update: The patient is a 56-year-old gentleman who had been admitted to the intensive care unit yesterday due to Covid pneumonia and bilateral pulmonary emboli. The patient has been prone and has had his oxygen saturations improved. He has been tolerating his medications. Patient says today that he is breathing better. He also has been tolerating his diet. He does have a cough. Functional Status: Reports: Pain Controlled, Tolerating Diet. Denies: New Symptoms - Review of Systems General: Reports: Fatigue HEENT: Reports: No Symptoms Pulmonary: Reports: Shortness of Breath, Cough Cardiovascular: Reports: No Symptoms Gastrointestinal: Reports: No Symptoms Genitourinary: Reports: No Symptoms Musculoskeletal: Reports: No Symptoms Skin: Reports: No Symptoms Neurological: Reports: No Symptoms Psychiatric: Reports: No Symptoms - Patient Data Vitals - Most Recent: Last Vital Signs Temp 36.1 C 08/28/21 04:00 Pulse 76 08/28/21 04:00 Resp 36 H 08/28/21 04:00 BP 138/95 H 08/28/21 04:00 Pulse Ox 92 L 08/28/21 05:50 Weight - Most Recent: 90.764 kg I&O - Last 24 Hours: Intake & Output 08/27/21 08/27/21 08/28/21 14:59 22:59 06:59 Intake Total 350 971 Output Total 1050 650 Balance -1050 350 321 Lab Results Last 24 Hours: Laboratory Results - last 24 hr 08/27/21 08/27/21 08/27/21 Range/Units 06:40 06:42 06:42 WBC 10.41 H (4.23-9.07) K/mm3 RBC 5.38 (4.63-6.08) M/mm3 Hgb 15.9 (13.7-17.5) gm/dl Hct 45.9 (40.1-51.0) % MCV 85.3 (79.0-92.2) fl MCH 29.6 (25.7-32.2) pg MCHC 34.6 (32.2-35.5) g/dl RDW Std Deviation 44.0 H (35.1-43.9) fL Plt Count 316 (163-337) K/mm3 MPV 10.1 (9.4-12.3) fl Neut % (Auto) 88.7 H (34.0-67.9) % Lymph % (Auto) 7.2 L (21.8-53.1) % Lucas % (Auto) 2.6 L (5.3-12.2) % Eos % (Auto) 0.8 (0.8-7.0) Baso % (Auto) 0.2 (0.1-1.2) % Neut # (Auto) 9.24 H (1.78-5.38) K/mm3 Lymph # (Auto) 0.75 L (1.32-3.57) K/mm3 Lucas # (Auto) 0.27 L (0.30-0.82) K/mm3 Eos # (Auto) 0.08 (0.04-0.54) K/mm3 Baso # (Auto) 0.02 (0.01-0.08) K/mm3 Manual Slide Review Abnormal smear D-Dimer, Quantitative (0.19-0.50) mg/L Puncture Site ABG pH (7.35-7.45) ABG pCO2 (35.0-45.0) mmHg ABG pO2 (80.0-100.0) mmHg ABG HCO3 (22.0-26.0) meq/L ABG O2 Saturation (96.0-97.0) % ABG Base Excess (-2-2.0) Antonio Test A-a Gradient mmHg O2 Delivery Device Oxygen Flow Rate FiO2 (21.00-100.00) % Sodium 133 L (136-145) mEq/L Potassium 3.7 (3.5-5.1) mEq/L Chloride 98 (98-107) mEq/L Carbon Dioxide 26 (21-32) mEq/L Anion Gap 12.7 (5-15) BUN 20 H (7-18) mg/dL Creatinine 1.1 (0.7-1.3) mg/dL Est Cr Clr Drug Dosing 70.94 mL/min Estimated GFR (MDRD) > 60 (>60) mL/min BUN/Creatinine Ratio 18.2 H (14-18) Glucose 133 H (70-99) mg/dL Lactic Acid (0.4-2.0) mmol/L Calcium 8.2 L (8.5-10.1) mg/dL Magnesium 2.5 H (1.8-2.4) mg/dL Total Bilirubin 0.9 (0.2-1.0) mg/dL AST 68 H (15-37) U/L ALT 83 H (16-63) U/L Alkaline Phosphatase 61 (46-116) U/L Lactate Dehydrogenase 697 H (85-227) U/L Troponin I < 0.017 (0.00-0.056) ng/mL C-Reactive Protein 20.3 H* (<1.0) mg/dL NT-Pro-B Natriuret Pep (0-125) pg/mL Total Protein 7.6 (6.4-8.2) g/dl Albumin 2.4 L (3.4-5.0) g/dl Globulin 5.2 gm/dL Albumin/Globulin Ratio 0.5 L (1-2) Influenza Type A RNA Negative (NEGATIVE) Influenza Type B RNA Negative (NEGATIVE) SARS-CoV-2 RNA (REBECCA) Positive H (NEGATIVE) 08/27/21 08/27/21 08/27/21 Range/Units 06:42 06:42 07:15 WBC (4.23-9.07) K/mm3 RBC (4.63-6.08) M/mm3 Hgb (13.7-17.5) gm/dl Hct (40.1-51.0) % MCV (79.0-92.2) fl MCH (25.7-32.2) pg MCHC (32.2-35.5) g/dl RDW Std Deviation (35.1-43.9) fL Plt Count (163-337) K/mm3 MPV (9.4-12.3) fl Neut % (Auto) (34.0-67.9) % Lymph % (Auto) (21.8-53.1) % Lucas % (Auto) (5.3-12.2) % Eos % (Auto) (0.8-7.0) Baso % (Auto) (0.1-1.2) % Neut # (Auto) (1.78-5.38) K/mm3 Lymph # (Auto) (1.32-3.57) K/mm3 Lucas # (Auto) (0.30-0.82) K/mm3 Eos # (Auto) (0.04-0.54) K/mm3 Baso # (Auto) (0.01-0.08) K/mm3 Manual Slide Review D-Dimer, Quantitative 14.22 H (0.19-0.50) mg/L Puncture Site ABG pH (7.35-7.45) ABG pCO2 (35.0-45.0) mmHg ABG pO2 (80.0-100.0) mmHg ABG HCO3 (22.0-26.0) meq/L ABG O2 Saturation (96.0-97.0) % ABG Base Excess (-2-2.0) Antonio Test A-a Gradient mmHg O2 Delivery Device Oxygen Flow Rate FiO2 (21.00-100.00) % Sodium (136-145) mEq/L Potassium (3.5-5.1) mEq/L Chloride (98-107) mEq/L Carbon Dioxide (21-32) mEq/L Anion Gap (5-15) BUN (7-18) mg/dL Creatinine (0.7-1.3) mg/dL Est Cr Clr Drug Dosing mL/min Estimated GFR (MDRD) (>60) mL/min BUN/Creatinine Ratio (14-18) Glucose (70-99) mg/dL Lactic Acid 2.1 H* (0.4-2.0) mmol/L Calcium (8.5-10.1) mg/dL Magnesium (1.8-2.4) mg/dL Total Bilirubin (0.2-1.0) mg/dL AST (15-37) U/L ALT (16-63) U/L Alkaline Phosphatase (46-116) U/L Lactate Dehydrogenase (85-227) U/L Troponin I (0.00-0.056) ng/mL C-Reactive Protein (<1.0) mg/dL NT-Pro-B Natriuret Pep 74 (0-125) pg/mL Total Protein (6.4-8.2) g/dl Albumin (3.4-5.0) g/dl Globulin gm/dL Albumin/Globulin Ratio (1-2) Influenza Type A RNA (NEGATIVE) Influenza Type B RNA (NEGATIVE) SARS-CoV-2 RNA (REBECCA) (NEGATIVE) 08/27/21 08/27/21 08/28/21 Range/Units 08:29 13:31 05:15 WBC 9.84 H (4.23-9.07) K/mm3 RBC 4.76 (4.63-6.08) M/mm3 Hgb 14.1 D (13.7-17.5) gm/dl Hct 41.2 (40.1-51.0) % MCV 86.6 (79.0-92.2) fl MCH 29.6 (25.7-32.2) pg MCHC 34.2 (32.2-35.5) g/dl RDW Std Deviation 43.9 (35.1-43.9) fL Plt Count 251 (163-337) K/mm3 MPV 10.2 (9.4-12.3) fl Neut % (Auto) 89.8 H (34.0-67.9) % Lymph % (Auto) 6.5 L (21.8-53.1) % Lucas % (Auto) 3.0 L (5.3-12.2) % Eos % (Auto) 0.1 L (0.8-7.0) Baso % (Auto) 0.1 (0.1-1.2) % Neut # (Auto) 8.83 H (1.78-5.38) K/mm3 Lymph # (Auto) 0.64 L (1.32-3.57) K/mm3 Lucas # (Auto) 0.30 (0.30-0.82) K/mm3 Eos # (Auto) 0.01 L (0.04-0.54) K/mm3 Baso # (Auto) 0.01 (0.01-0.08) K/mm3 Manual Slide Review Abnormal smear D-Dimer, Quantitative (0.19-0.50) mg/L Puncture Site Rt radial ABG pH 7.49 H (7.35-7.45) ABG pCO2 32.8 L (35.0-45.0) mmHg ABG pO2 58.0 L (80.0-100.0) mmHg ABG HCO3 24.8 (22.0-26.0) meq/L ABG O2 Saturation 91.1 L (96.0-97.0) % ABG Base Excess 2.5 H (-2-2.0) Antonio Test Positive A-a Gradient 471 mmHg O2 Delivery Device Hiflow nasal cannula Oxygen Flow Rate 60.0 FiO2 80.00 (21.00-100.00) % Sodium (136-145) mEq/L Potassium (3.5-5.1) mEq/L Chloride (98-107) mEq/L Carbon Dioxide (21-32) mEq/L Anion Gap (5-15) BUN (7-18) mg/dL Creatinine (0.7-1.3) mg/dL Est Cr Clr Drug Dosing mL/min Estimated GFR (MDRD) (>60) mL/min BUN/Creatinine Ratio (14-18) Glucose (70-99) mg/dL Lactic Acid 2.0 (0.4-2.0) mmol/L Calcium (8.5-10.1) mg/dL Magnesium (1.8-2.4) mg/dL Total Bilirubin (0.2-1.0) mg/dL AST (15-37) U/L ALT (16-63) U/L Alkaline Phosphatase (46-116) U/L Lactate Dehydrogenase (85-227) U/L Troponin I (0.00-0.056) ng/mL C-Reactive Protein (<1.0) mg/dL NT-Pro-B Natriuret Pep (0-125) pg/mL Total Protein (6.4-8.2) g/dl Albumin (3.4-5.0) g/dl Globulin gm/dL Albumin/Globulin Ratio (1-2) Influenza Type A RNA (NEGATIVE) Influenza Type B RNA (NEGATIVE) SARS-CoV-2 RNA (REBECCA) (NEGATIVE) 08/28/21 08/28/21 Range/Units 05:15 05:15 WBC (4.23-9.07) K/mm3 RBC (4.63-6.08) M/mm3 Hgb (13.7-17.5) gm/dl Hct (40.1-51.0) % MCV (79.0-92.2) fl MCH (25.7-32.2) pg MCHC (32.2-35.5) g/dl RDW Std Deviation (35.1-43.9) fL Plt Count (163-337) K/mm3 MPV (9.4-12.3) fl Neut % (Auto) (34.0-67.9) % Lymph % (Auto) (21.8-53.1) % Lucas % (Auto) (5.3-12.2) % Eos % (Auto) (0.8-7.0) Baso % (Auto) (0.1-1.2) % Neut # (Auto) (1.78-5.38) K/mm3 Lymph # (Auto) (1.32-3.57) K/mm3 Lucas # (Auto) (0.30-0.82) K/mm3 Eos # (Auto) (0.04-0.54) K/mm3 Baso # (Auto) (0.01-0.08) K/mm3 Manual Slide Review D-Dimer, Quantitative 13.13 H (0.19-0.50) mg/L Puncture Site ABG pH (7.35-7.45) ABG pCO2 (35.0-45.0) mmHg ABG pO2 (80.0-100.0) mmHg ABG HCO3 (22.0-26.0) meq/L ABG O2 Saturation (96.0-97.0) % ABG Base Excess (-2-2.0) Antonio Test A-a Gradient mmHg O2 Delivery Device Oxygen Flow Rate FiO2 (21.00-100.00) % Sodium 140 (136-145) mEq/L Potassium 3.8 (3.5-5.1) mEq/L Chloride 104 (98-107) mEq/L Carbon Dioxide 28 (21-32) mEq/L Anion Gap 11.8 (5-15) BUN 19 H (7-18) mg/dL Creatinine 0.8 (0.7-1.3) mg/dL Est Cr Clr Drug Dosing 97.54 mL/min Estimated GFR (MDRD) > 60 (>60) mL/min BUN/Creatinine Ratio 23.8 H (14-18) Glucose 118 H (70-99) mg/dL Lactic Acid (0.4-2.0) mmol/L Calcium 7.9 L (8.5-10.1) mg/dL Magnesium 2.4 (1.8-2.4) mg/dL Total Bilirubin 0.6 (0.2-1.0) mg/dL AST 51 H (15-37) U/L ALT 72 H (16-63) U/L Alkaline Phosphatase 54 (46-116) U/L Lactate Dehydrogenase (85-227) U/L Troponin I (0.00-0.056) ng/mL C-Reactive Protein 16.3 H* (<1.0) mg/dL NT-Pro-B Natriuret Pep (0-125) pg/mL Total Protein 6.2 L (6.4-8.2) g/dl Albumin 2.1 L (3.4-5.0) g/dl Globulin 4.1 gm/dL Albumin/Globulin Ratio 0.5 L (1-2) Influenza Type A RNA (NEGATIVE) Influenza Type B RNA (NEGATIVE) SARS-CoV-2 RNA (REBECCA) (NEGATIVE) Med Orders - Current: Current Medications Acetaminophen (Acetaminophen 325 Mg Tab) 650 mg PO Q4H PRN PRN Reason: Pain (Mild 1-3)/fever Albuterol/Ipratropium (Albuterol/Ipratropium 3.0-0.5 Mg/3 Ml Neb Soln) 3 ml NEB Q4H PRN PRN Reason: Shortness Of Breath/wheezing Last Admin: 08/28/21 05:50 Dose: 3 ml Documented by: Apixaban (Apixaban 5 Mg Tab) 10 mg PO BID [facility] Last Admin: 08/27/21 20:29 Dose: 10 mg Documented by: Baricitinib (Baricitinib 2 Mg Tab) 4 mg PO Q24H [facility] Stop: 09/09/21 15:01 Last Admin: 08/27/21 16:37 Dose: 4 mg Documented by: Dexamethasone (Dexamethasone 4 Mg Tab) 6 mg PO DAILY [facility] Docusate Sodium (Docusate Sodium 100 Mg Cap) 100 mg PO BID PRN PRN Reason: Constipation Remdesivir 100 mg/ Sodium (Chloride) 100 mls @ 100 mls/hr IV Q24H [facility] Stop: 08/31/21 10:59 Ceftriaxone Sodium 2 gm/ (Sodium Chloride) 100 mls @ 200 mls/hr IV Q24H [facility] Last Admin: 08/27/21 16:29 Dose: 200 mls/hr Documented by: Sodium Chloride (Normal Saline) 1,000 mls @ 75 mls/hr IV ASDIRECTED [facility] Last Admin: 08/27/21 18:54 Dose: 75 mls/hr Documented by: Morphine Sulfate (Morphine 2 Mg/Ml Syringe) 2 mg IVPUSH Q2H PRN PRN Reason: Pain (severe 7-10) Stop: 08/28/21 13:10 Ondansetron HCl (Ondansetron 4 Mg Tab.Dis) 4 mg PO Q4H PRN PRN Reason: nausea, able to take PO Oxycodone HCl (Oxycodone 5 Mg Tab) 5 mg PO Q4H PRN PRN Reason: Pain (moderate 4-6) Sodium Chloride (Sodium Chloride 0.9% 10 Ml Syringe) 10 ml FLUSH ONETIME PRN PRN Reason: IV FLUSH Last Admin: 08/27/21 08:49 Dose: 10 ml Documented by: Temazepam (Temazepam 15 Mg Cap) 15 mg PO BEDTIME PRN PRN Reason: Sleep Discontinued Medications Acetaminophen (Acetaminophen 325 Mg Tab) 650 mg PO NOW ONE Stop: 08/27/21 08:07 Last Admin: 08/27/21 08:22 Dose: 650 mg Documented by: Apixaban (Apixaban 5 Mg Tab) 10 mg PO ONETIME ONE Stop: 08/27/21 09:22 Last Admin: 08/27/21 10:08 Dose: 10 mg Documented by: Dexamethasone (Dexamethasone 4 Mg/Ml 5 Ml Mdv) 6 mg IV ONETIME ONE Stop: 08/27/21 08:36 Last Admin: 08/27/21 09:20 Dose: 6 mg Documented by: Dextrose/Sodium Chloride (Dextrose 5%-Normal Saline) 1,000 mls @ 250 mls/hr IV ASDIRECTED [facility] Last Admin: 08/27/21 08:22 Dose: 250 mls/hr Documented by: Sodium Chloride (Normal Saline) 100 mls @ 75 mls/hr IV ASDIRECTED [facility] Last Admin: 08/27/21 08:50 Dose: 75 mls/hr Documented by: Remdesivir 200 mg/ Sodium (Chloride) 250 mls @ 250 mls/hr IV ONETIME ONE Stop: 08/27/21 08:37 Last Admin: 08/27/21 10:20 Dose: 250 mls/hr Documented by: Iopamidol (Iopamidol 755 Mg/Ml 100 Ml Bottle) 100 ml IVPUSH ONETIME ONE Stop: 08/27/21 08:06 Last Admin: 08/27/21 08:49 Dose: 100 ml Documented by: - Exam Quality Assessment: Supplemental Oxygen, DVT Prophylaxis General: Alert, Oriented, Cooperative, No Acute Distress HEENT: Pupils Equal, Pupils Reactive, EOMI, Mucous Membr. Moist/[place] Neck: Supple, Trachea Midline Lungs: Decreased Breath Sounds, Crackles (Widely scattered) Cardiovascular: Regular Rate, Regular Rhythm GI/Abdominal Exam: Normal Bowel Sounds, Soft, Non-Tender, No Distention Back Exam: Normal Inspection, Full Range of Motion Extremities: Normal Inspection, No Pedal Edema Skin: Warm, Dry, Intact Neurological: No New Focal Deficit, Normal Gait, Normal Speech Psy/Mental Status: Alert, Normal Affect, Normal Mood - Patient Data Lab Results Last 24 hrs: Laboratory Results - last 24 hr 08/27/21 08/27/21 08/27/21 Range/Units 06:40 06:42 06:42 WBC 10.41 H (4.23-9.07) K/mm3 RBC 5.38 (4.63-6.08) M/mm3 Hgb 15.9 (13.7-17.5) gm/dl Hct 45.9 (40.1-51.0) % MCV 85.3 (79.0-92.2) fl MCH 29.6 (25.7-32.2) pg MCHC 34.6 (32.2-35.5) g/dl RDW Std Deviation 44.0 H (35.1-43.9) fL Plt Count 316 (163-337) K/mm3 MPV 10.1 (9.4-12.3) fl Neut % (Auto) 88.7 H (34.0-67.9) % Lymph % (Auto) 7.2 L (21.8-53.1) % Lucas % (Auto) 2.6 L (5.3-12.2) % Eos % (Auto) 0.8 (0.8-7.0) Baso % (Auto) 0.2 (0.1-1.2) % Neut # (Auto) 9.24 H (1.78-5.38) K/mm3 Lymph # (Auto) 0.75 L (1.32-3.57) K/mm3 Lucas # (Auto) 0.27 L (0.30-0.82) K/mm3 Eos # (Auto) 0.08 (0.04-0.54) K/mm3 Baso # (Auto) 0.02 (0.01-0.08) K/mm3 Manual Slide Review Abnormal smear D-Dimer, Quantitative (0.19-0.50) mg/L Puncture Site ABG pH (7.35-7.45) ABG pCO2 (35.0-45.0) mmHg ABG pO2 (80.0-100.0) mmHg ABG HCO3 (22.0-26.0) meq/L ABG O2 Saturation (96.0-97.0) % ABG Base Excess (-2-2.0) Antonio Test A-a Gradient mmHg O2 Delivery Device Oxygen Flow Rate FiO2 (21.00-100.00) % Sodium 133 L (136-145) mEq/L Potassium 3.7 (3.5-5.1) mEq/L Chloride 98 (98-107) mEq/L Carbon Dioxide 26 (21-32) mEq/L Anion Gap 12.7 (5-15) BUN 20 H (7-18) mg/dL Creatinine 1.1 (0.7-1.3) mg/dL Est Cr Clr Drug Dosing 70.94 mL/min Estimated GFR (MDRD) > 60 (>60) mL/min BUN/Creatinine Ratio 18.2 H (14-18) Glucose 133 H (70-99) mg/dL Lactic Acid (0.4-2.0) mmol/L Calcium 8.2 L (8.5-10.1) mg/dL Magnesium 2.5 H (1.8-2.4) mg/dL Total Bilirubin 0.9 (0.2-1.0) mg/dL AST 68 H (15-37) U/L ALT 83 H (16-63) U/L Alkaline Phosphatase 61 (46-116) U/L Lactate Dehydrogenase 697 H (85-227) U/L Troponin I < 0.017 (0.00-0.056) ng/mL C-Reactive Protein 20.3 H* (<1.0) mg/dL NT-Pro-B Natriuret Pep (0-125) pg/mL Total Protein 7.6 (6.4-8.2) g/dl Albumin 2.4 L (3.4-5.0) g/dl Globulin 5.2 gm/dL Albumin/Globulin Ratio 0.5 L (1-2) Influenza Type A RNA Negative (NEGATIVE) Influenza Type B RNA Negative (NEGATIVE) SARS-CoV-2 RNA (REBECCA) Positive H (NEGATIVE) 08/27/21 08/27/21 08/27/21 Range/Units 06:42 06:42 07:15 WBC (4.23-9.07) K/mm3 RBC (4.63-6.08) M/mm3 Hgb (13.7-17.5) gm/dl Hct (40.1-51.0) % MCV (79.0-92.2) fl MCH (25.7-32.2) pg MCHC (32.2-35.5) g/dl RDW Std Deviation (35.1-43.9) fL Plt Count (163-337) K/mm3 MPV (9.4-12.3) fl Neut % (Auto) (34.0-67.9) % Lymph % (Auto) (21.8-53.1) % Lucas % (Auto) (5.3-12.2) % Eos % (Auto) (0.8-7.0) Baso % (Auto) (0.1-1.2) % Neut # (Auto) (1.78-5.38) K/mm3 Lymph # (Auto) (1.32-3.57) K/mm3 Lucas # (Auto) (0.30-0.82) K/mm3 Eos # (Auto) (0.04-0.54) K/mm3 Baso # (Auto) (0.01-0.08) K/mm3 Manual Slide Review D-Dimer, Quantitative 14.22 H (0.19-0.50) mg/L Puncture Site ABG pH (7.35-7.45) ABG pCO2 (35.0-45.0) mmHg ABG pO2 (80.0-100.0) mmHg ABG HCO3 (22.0-26.0) meq/L ABG O2 Saturation (96.0-97.0) % ABG Base Excess (-2-2.0) Antonio Test A-a Gradient mmHg O2 Delivery Device Oxygen Flow Rate FiO2 (21.00-100.00) % Sodium (136-145) mEq/L Potassium (3.5-5.1) mEq/L Chloride (98-107) mEq/L Carbon Dioxide (21-32) mEq/L Anion Gap (5-15) BUN (7-18) mg/dL Creatinine (0.7-1.3) mg/dL Est Cr Clr Drug Dosing mL/min Estimated GFR (MDRD) (>60) mL/min BUN/Creatinine Ratio (14-18) Glucose (70-99) mg/dL Lactic Acid 2.1 H* (0.4-2.0) mmol/L Calcium (8.5-10.1) mg/dL Magnesium (1.8-2.4) mg/dL Total Bilirubin (0.2-1.0) mg/dL AST (15-37) U/L ALT (16-63) U/L Alkaline Phosphatase (46-116) U/L Lactate Dehydrogenase (85-227) U/L Troponin I (0.00-0.056) ng/mL C-Reactive Protein (<1.0) mg/dL NT-Pro-B Natriuret Pep 74 (0-125) pg/mL Total Protein (6.4-8.2) g/dl Albumin (3.4-5.0) g/dl Globulin gm/dL Albumin/Globulin Ratio (1-2) Influenza Type A RNA (NEGATIVE) Influenza Type B RNA (NEGATIVE) SARS-CoV-2 RNA (REBECCA) (NEGATIVE) 08/27/21 08/27/21 08/28/21 Range/Units 08:29 13:31 05:15 WBC 9.84 H (4.23-9.07) K/mm3 RBC 4.76 (4.63-6.08) M/mm3 Hgb 14.1 D (13.7-17.5) gm/dl Hct 41.2 (40.1-51.0) % MCV 86.6 (79.0-92.2) fl MCH 29.6 (25.7-32.2) pg MCHC 34.2 (32.2-35.5) g/dl RDW Std Deviation 43.9 (35.1-43.9) fL Plt Count 251 (163-337) K/mm3 MPV 10.2 (9.4-12.3) fl Neut % (Auto) 89.8 H (34.0-67.9) % Lymph % (Auto) 6.5 L (21.8-53.1) % Lucas % (Auto) 3.0 L (5.3-12.2) % Eos % (Auto) 0.1 L (0.8-7.0) Baso % (Auto) 0.1 (0.1-1.2) % Neut # (Auto) 8.83 H (1.78-5.38) K/mm3 Lymph # (Auto) 0.64 L (1.32-3.57) K/mm3 Lucas # (Auto) 0.30 (0.30-0.82) K/mm3 Eos # (Auto) 0.01 L (0.04-0.54) K/mm3 Baso # (Auto) 0.01 (0.01-0.08) K/mm3 Manual Slide Review Abnormal smear D-Dimer, Quantitative (0.19-0.50) mg/L Puncture Site Rt radial ABG pH 7.49 H (7.35-7.45) ABG pCO2 32.8 L (35.0-45.0) mmHg ABG pO2 58.0 L (80.0-100.0) mmHg ABG HCO3 24.8 (22.0-26.0) meq/L ABG O2 Saturation 91.1 L (96.0-97.0) % ABG Base Excess 2.5 H (-2-2.0) Antonio Test Positive A-a Gradient 471 mmHg O2 Delivery Device Hiflow nasal cannula Oxygen Flow Rate 60.0 FiO2 80.00 (21.00-100.00) % Sodium (136-145) mEq/L Potassium (3.5-5.1) mEq/L Chloride (98-107) mEq/L Carbon Dioxide (21-32) mEq/L Anion Gap (5-15) BUN (7-18) mg/dL Creatinine (0.7-1.3) mg/dL Est Cr Clr Drug Dosing mL/min Estimated GFR (MDRD) (>60) mL/min BUN/Creatinine Ratio (14-18) Glucose (70-99) mg/dL Lactic Acid 2.0 (0.4-2.0) mmol/L Calcium (8.5-10.1) mg/dL Magnesium (1.8-2.4) mg/dL Total Bilirubin (0.2-1.0) mg/dL AST (15-37) U/L ALT (16-63) U/L Alkaline Phosphatase (46-116) U/L Lactate Dehydrogenase (85-227) U/L Troponin I (0.00-0.056) ng/mL C-Reactive Protein (<1.0) mg/dL NT-Pro-B Natriuret Pep (0-125) pg/mL Total Protein (6.4-8.2) g/dl Albumin (3.4-5.0) g/dl Globulin gm/dL Albumin/Globulin Ratio (1-2) Influenza Type A RNA (NEGATIVE) Influenza Type B RNA (NEGATIVE) SARS-CoV-2 RNA (REBECCA) (NEGATIVE) 08/28/21 08/28/21 Range/Units 05:15 05:15 WBC (4.23-9.07) K/mm3 RBC (4.63-6.08) M/mm3 Hgb (13.7-17.5) gm/dl Hct (40.1-51.0) % MCV (79.0-92.2) fl MCH (25.7-32.2) pg MCHC (32.2-35.5) g/dl RDW Std Deviation (35.1-43.9) fL Plt Count (163-337) K/mm3 MPV (9.4-12.3) fl Neut % (Auto) (34.0-67.9) % Lymph % (Auto) (21.8-53.1) % Lucas % (Auto) (5.3-12.2) % Eos % (Auto) (0.8-7.0) Baso % (Auto) (0.1-1.2) % Neut # (Auto) (1.78-5.38) K/mm3 Lymph # (Auto) (1.32-3.57) K/mm3 Lucas # (Auto) (0.30-0.82) K/mm3 Eos # (Auto) (0.04-0.54) K/mm3 Baso # (Auto) (0.01-0.08) K/mm3 Manual Slide Review D-Dimer, Quantitative 13.13 H (0.19-0.50) mg/L Puncture Site ABG pH (7.35-7.45) ABG pCO2 (35.0-45.0) mmHg ABG pO2 (80.0-100.0) mmHg ABG HCO3 (22.0-26.0) meq/L ABG O2 Saturation (96.0-97.0) % ABG Base Excess (-2-2.0) Antonio Test A-a Gradient mmHg O2 Delivery Device Oxygen Flow Rate FiO2 (21.00-100.00) % Sodium 140 (136-145) mEq/L Potassium 3.8 (3.5-5.1) mEq/L Chloride 104 (98-107) mEq/L Carbon Dioxide 28 (21-32) mEq/L Anion Gap 11.8 (5-15) BUN 19 H (7-18) mg/dL Creatinine 0.8 (0.7-1.3) mg/dL Est Cr Clr Drug Dosing 97.54 mL/min Estimated GFR (MDRD) > 60 (>60) mL/min BUN/Creatinine Ratio 23.8 H (14-18) Glucose 118 H (70-99) mg/dL Lactic Acid (0.4-2.0) mmol/L Calcium 7.9 L (8.5-10.1) mg/dL Magnesium 2.4 (1.8-2.4) mg/dL Total Bilirubin 0.6 (0.2-1.0) mg/dL AST 51 H (15-37) U/L ALT 72 H (16-63) U/L Alkaline Phosphatase 54 (46-116) U/L Lactate Dehydrogenase (85-227) U/L Troponin I (0.00-0.056) ng/mL C-Reactive Protein 16.3 H* (<1.0) mg/dL NT-Pro-B Natriuret Pep (0-125) pg/mL Total Protein 6.2 L (6.4-8.2) g/dl Albumin 2.1 L (3.4-5.0) g/dl Globulin 4.1 gm/dL Albumin/Globulin Ratio 0.5 L (1-2) Influenza Type A RNA (NEGATIVE) Influenza Type B RNA (NEGATIVE) SARS-CoV-2 RNA (REBECCA) (NEGATIVE) Result Diagrams: 08/28/21 05:15 08/28/21 05:15 Sepsis Event Note - Evaluation Sepsis Screening Result: No Definite Risk - Focused Exam Vital Signs: Vital Signs Temp Temp Pulse Pulse Resp BP BP 10/28/21 05:50 08/28/21 04:00 36.1 C 76 36 H 138/95 H 08/27/21 23:53 35.9 C L 76 26 H 133/94 H 08/27/21 20:42 08/27/21 20:00 36.1 C 84 33 H 125/65 08/27/21 19:35 36.1 C 86 28 H 125/65 Pulse Ox Pulse Ox 08/28/21 05:50 92 L 08/28/21 04:00 94 L 08/27/21 23:53 91 L 08/27/21 20:42 93 L 08/27/21 20:00 96 08/27/21 19:35 95 - Problem List & Annotations (1) Acute respiratory failure due to COVID-19 SNOMED Code(s): 346803338 Code(s): U07.1 - COVID-19; J96.00 - ACUTE RESPIRATORY FAILURE, UNSP W HYPOXIA OR HYPERCAPNIA Status: Acute Priority: High Current Visit: Yes (2) Hypoxia SNOMED Code(s): 619312814 Code(s): R09.02 - HYPOXEMIA Status: Acute Priority: High Current Visit: Yes (3) Lactic acidosis SNOMED Code(s): 35872158 Code(s): E87.2 - ACIDOSIS Status: Resolved Priority: High Current Visit: Yes (4) Pneumonia due to COVID-19 virus SNOMED Code(s): 420548868644183430 Code(s): U07.1 - COVID-19; J12.82 - PNEUMONIA DUE TO CORONAVIRUS DISEASE 2019 Status: Acute Priority: High Current Visit: Yes (5) Pulmonary embolism SNOMED Code(s): 17462700 Code(s): I26.99 - OTHER PULMONARY EMBOLISM WITHOUT ACUTE COR PULMONALE Status: Acute Priority: High Current Visit: Yes Qualifiers: Pulmonary embolism type: multiple subsegmental (without acute cor pulmonale) Qualified Code(s): I26.94 - Multiple subsegmental pulmonary emboli without acute cor pulmonale - Problem List Review Problem List Initiated/Reviewed/Updated: Yes - My Orders Last 24 Hours: My Active Orders 08/27/21 13:10 Patient Status [ADT] Routine Cardiac Monitoring [RC] CONTINUOUS Oxygen Therapy [RC] PRN RT Aerosol Therapy [RC] ASDIRECTED Up ad Jessica [RC] ASDIRECTED VTE/DVT Education [RC] Vital Signs [RC] Q4HR Acetaminophen [TylenoL] 650 mg PO Q4H PRN Albuterol/Ipratropium [DuoNeb 3.0-0.5 MG/3 ML] 3 ml NEB Q4H PRN Docusate Sodium [Colace] 100 mg PO BID PRN Morphine 2 mg IVPUSH Q2H PRN Ondansetron [Zofran ODT] 4 mg PO Q4H PRN Temazepam [Restoril] 15 mg PO BEDTIME PRN oxyCODONE 5 mg PO Q4H PRN Resuscitation Status Routine 08/27/21 15:00 Baricitinib [Olumiant] 4 mg PO Q24H cefTRIAXone [Rocephin] 2 gm Sodium Chloride 0.9% [Normal Saline AdvBag] 100 ml IV Q24H 08/27/21 16:23 RT Chest Physiotherapy [RC] ASDIRECTED RT Incentive Spirometry [RC] ASDIRECTED 08/27/21 Dinner Regular Diet [DIET] 08/27/21 18:45 Sodium Chloride 0.9% [Normal Saline] 1,000 ml IV ASDIRECTED 08/27/21 21:00 Apixaban [Eliquis] 10 mg PO BID 08/28/21 09:00 dexAMETHasone 6 mg PO DAILY 08/28/21 10:00 Remdesivir 100 mg Sodium Chloride 0.9% [Normal Saline] 100 ml IV Q24H - Plan Plan:: The patient is a 56-year-old gentleman who has COVID-19 pneumonia with acute respiratory failure. Admitted the patient to the intensive care unit on te lemetry. I have reviewed the patient's chest x-ray and concerned about his work of breathing as well as possible ARDS. The patient will have his oxygen titrated to keep his saturations around 92%. The patient has been started on remdesivir in the emergency department and I started the patient on remdesivir 100 mg IV daily. Patient is also been started on dexamethasone 6 mg p.o. daily to start tomorrow. The patient also has been started on baricitinib 4 mg p.o. daily. The patient also has multiple subsegmental pulmonary emboli and he has been started on apixaban 10 mg p.o. twice daily. Repeat laboratory studies have been ordered for the morning. The patient will have regular diet as tolerated. RT will help the patient with incentive spirometer. I spoke with patient to provide information about baricitinib. I offered the "fax sheet for patients and parents/caregivers, for baricitinib" to read and review. I stated that therapy has been approved by an emergency use authorization process and has not fully been FDA reviewed or approved. I shared potential risks from the therapy including increased risk for serious infections, anaphylaxis, and reaction to medication. I discussed there are other potential treatment options that are currently not FDA approved to treat COVID-19. Offered opportunity to ask questions and all questions were answered. Patient voiced understanding and agreed to proceed with treatment. 08/28/2021 The patient is a 56-year-old gentleman who has COVID-19 pneumonia with bilateral pulmonary emboli will remain in the ICU. He has been recommended to continue prone to help keep his saturations up. Patient is also on remdesivir to be continued. He is also on baricitinib and he has been able to tolerate these. Patient has steroids dexamethasone 6 mg p.o. daily. Repeat laboratory studies have been ordered for the morning. The patient will have repeat chest x-ray. The patient has been recommended to continue with his diet as tolerated. He is also to ambulate as he can in the room. Upon discharge the patient will need to have long-term anticoagulation for at least 6 to 9 months. He will need to have close follow-up with primary care physician.
[2021-08-28] MEDS: Dexamethasone 4 MG Tab PO SCH (08:01)
[2021-08-28] MEDS: Apixaban 5 MG Tab PO SCH ×2 (08:01→20:20)
[2021-08-28] MEDS: Sodium Chloride 0.9% 1,000 ML IV SCH ×2 (09:39→22:41)
[2021-08-28] MEDS: REMDESIVIR 100 MG in Sodium Chloride 0.9% 100 ML IV SCH (09:40)
[2021-08-28] MEDS: cefTRIAXone 2 GM in Sodium Chloride 0.9% 100 ML IV SCH (14:27)
[2021-08-29] MEDS: Albuterol/Ipratropium 3.0-0.5 MG/3 ML Neb Soln NEB PRN ×2 (05:35→08:06)
--- NOTE | 2021-08-29 08:26 | PCM.PN ---
- Patient Data Vitals - Most Recent: Last Vital Signs Temp 36.3 C 08/29/21 04:00 Pulse 72 08/29/21 04:00 Resp 33 H 08/29/21 04:00 BP 122/74 08/29/21 04:00 Pulse Ox 91 L 08/29/21 08:06 Weight - Most Recent: 90.174 kg I&O - Last 24 Hours: Intake & Output 08/28/21 08/29/21 08/29/21 22:59 06:59 14:59 Intake Total 2132 799 Output Total 750 550 Balance 1382 249 Lab Results Last 24 Hours: Laboratory Results - last 24 hr 08/29/21 08/29/21 Range/Units 07:33 08:16 WBC 12.26 H (4.23-9.07) K/mm3 RBC 4.66 (4.63-6.08) M/mm3 Hgb 13.7 (13.7-17.5) gm/dl Hct 40.6 (40.1-51.0) % MCV 87.1 (79.0-92.2) fl MCH 29.4 (25.7-32.2) pg MCHC 33.7 (32.2-35.5) g/dl RDW Std Deviation 45.6 H (35.1-43.9) fL Plt Count 252 (163-337) K/mm3 MPV 10.2 (9.4-12.3) fl Neut % (Auto) 89.1 H (34.0-67.9) % Lymph % (Auto) 7.2 L (21.8-53.1) % [place] % (Auto) 2.4 L (5.3-12.2) % Eos % (Auto) 1.1 (0.8-7.0) Baso % (Auto) 0.0 L (0.1-1.2) % Neut # (Auto) 10.91 H (1.78-5.38) K/mm3 Lymph # (Auto) 0.88 L (1.32-3.57) K/mm3 [place] # (Auto) 0.30 (0.30-0.82) K/mm3 Eos # (Auto) 0.14 (0.04-0.54) K/mm3 Baso # (Auto) 0.00 L (0.01-0.08) K/mm3 Puncture Site Rt radial ABG pH 7.45 (7.35-7.45) ABG pCO2 30.3 L (35.0-45.0) mmHg ABG pO2 60.0 L (80.0-100.0) mmHg ABG HCO3 20.7 L (22.0-26.0) meq/L ABG O2 Saturation 91.8 L (96.0-97.0) % ABG Base Excess -1.7 (-2-2.0) Antonio Test Positive A-a Gradient 508 mmHg O2 Delivery Device Hiflow nasal cannula Oxygen Flow Rate 55.0 FiO2 85.00 (21.00-100.00) % Med Orders - Current: Current Medications Acetaminophen (Acetaminophen 325 Mg Tab) 650 mg PO Q4H PRN PRN Reason: Pain (Mild 1-3)/fever Albuterol/Ipratropium (Albuterol/Ipratropium 3.0-0.5 Mg/3 Ml Neb Soln) 3 ml NEB Q4H PRN PRN Reason: Shortness Of Breath/wheezing Last Admin: 08/29/21 08:06 Dose: 3 ml Documented by: Apixaban (Apixaban 5 Mg Tab) 10 mg PO BID [facility] Last Admin: 08/28/21 20:20 Dose: 10 mg Documented by: Baricitinib (Baricitinib 2 Mg Tab) 4 mg PO Q24H [facility] Stop: 09/09/21 15:01 Last Admin: 08/28/21 14:29 Dose: 4 mg Documented by: Dexamethasone (Dexamethasone 4 Mg Tab) 6 mg PO DAILY [facility] Last Admin: 08/28/21 08:01 Dose: 6 mg Documented by: Docusate Sodium (Docusate Sodium 100 Mg Cap) 100 mg PO BID PRN PRN Reason: Constipation Remdesivir 100 mg/ Sodium (Chloride) 100 mls @ 100 mls/hr IV Q24H [facility] Stop: 08/31/21 10:59 Last Admin: 08/28/21 09:40 Dose: 100 mls/hr Documented by: Ceftriaxone Sodium 2 gm/ (Sodium Chloride) 100 mls @ 200 mls/hr IV Q24H [facility] Last Admin: 08/28/21 14:27 Dose: 200 mls/hr Documented by: Sodium Chloride (Normal Saline) 1,000 mls @ 75 mls/hr IV [facility] Last Admin: 08/28/21 22:41 Dose: 75 mls/hr Documented by: Ondansetron HCl (Ondansetron 4 Mg Tab.Dis) 4 mg PO Q4H PRN PRN Reason: nausea, able to take PO Oxycodone HCl (Oxycodone 5 Mg Tab) 5 mg PO Q4H PRN PRN Reason: Pain (moderate 4-6) Sodium Chloride (Sodium Chloride 0.9% 10 Ml Syringe) 10 ml FLUSH ONETIME PRN PRN Reason: IV FLUSH Last Admin: 08/27/21 08:49 Dose: 10 ml Documented by: Temazepam (Temazepam 15 Mg Cap) 15 mg PO BEDTIME PRN PRN Reason: Sleep Discontinued Medications Acetaminophen (Acetaminophen 325 Mg Tab) 650 mg PO NOW ONE Stop: 08/27/21 08:07 Last Admin: 08/27/21 08:22 Dose: 650 mg Documented by: Apixaban (Apixaban 5 Mg Tab) 10 mg PO ONETIME ONE Stop: 08/27/21 09:22 Last Admin: 08/27/21 10:08 Dose: 10 mg Documented by: Dexamethasone (Dexamethasone 4 Mg/Ml 5 Ml Mdv) 6 mg IV ONETIME ONE Stop: 08/27/21 08:36 Last Admin: 08/27/21 09:20 Dose: 6 mg Documented by: Dextrose/Sodium Chloride (Dextrose 5%-Normal Saline) 1,000 mls @ 250 mls/hr IV [facility] Last Admin: 08/27/21 08:22 Dose: 250 mls/hr Documented by: Sodium Chloride (Normal Saline) 100 mls @ [facility] Last Admin: 08/27/21 08:50 Dose: 75 mls/hr Documented by: Remdesivir 200 mg/ Sodium (Chloride) 250 mls @ 250 mls/hr IV ONETIME ONE Stop: 08/27/21 08:37 Last Admin: 08/27/21 10:20 Dose: 250 mls/hr Documented by: Iopamidol (Iopamidol 755 Mg/Ml 100 Ml Bottle) 100 ml IVPUSH ONETIME ONE Stop: 08/27/21 08:06 Last Admin: 08/27/21 08:49 Dose: 100 ml Documented by: Morphine Sulfate (Morphine 2 Mg/Ml Syringe) 2 mg IVPUSH Q2H PRN PRN Reason: Pain (severe 7-10) Stop: 08/28/21 13:10 - Patient Data Lab Results Last 24 hrs: Laboratory Results - last 24 hr 08/29/21 08/29/21 Range/Units 07:33 08:16 WBC 12.26 H (4.23-9.07) K/mm3 RBC 4.66 (4.63-6.08) M/mm3 Hgb 13.7 (13.7-17.5) gm/dl Hct 40.6 (40.1-51.0) % MCV 87.1 (79.0-92.2) fl MCH 29.4 (25.7-32.2) pg MCHC 33.7 (32.2-35.5) g/dl RDW Std Deviation 45.6 H (35.1-43.9) fL Plt Count 252 (163-337) K/mm3 MPV 10.2 (9.4-12.3) fl Neut % (Auto) 89.1 H (34.0-67.9) % Lymph % (Auto) 7.2 L (21.8-53.1) % [place] % (Auto) 2.4 L (5.3-12.2) % Eos % (Auto) 1.1 (0.8-7.0) Baso % (Auto) 0.0 L (0.1-1.2) % Neut # (Auto) 10.91 H (1.78-5.38) K/mm3 Lymph # (Auto) 0.88 L (1.32-3.57) K/mm3 [place] # (Auto) 0.30 (0.30-0.82) K/mm3 Eos # (Auto) 0.14 (0.04-0.54) K/mm3 Baso # (Auto) 0.00 L (0.01-0.08) K/mm3 Puncture Site Rt radial ABG pH 7.45 (7.35-7.45) ABG pCO2 30.3 L (35.0-45.0) mmHg ABG pO2 60.0 L (80.0-100.0) mmHg ABG HCO3 20.7 L (22.0-26.0) meq/L ABG O2 Saturation 91.8 L (96.0-97.0) % ABG Base Excess -1.7 (-2-2.0) Antonio Test Positive A-a Gradient 508 mmHg O2 Delivery Device Hiflow nasal cannula Oxygen Flow Rate 55.0 FiO2 85.00 (21.00-100.00) % Result Diagrams: 08/29/21 07:33 08/28/21 05:15 Sepsis Event Note - Evaluation Sepsis Screening Result: No Definite Risk - Focused Exam Vital Signs: Vital Signs Temp Pulse Resp BP Pulse Ox Pulse Ox 08/29/21 08:06 91 L 08/29/21 05:36 90 L 08/29/21 04:00 36.3 C 72 33 H 122/74 90 L 92 L 08/29/21 00:09 94 L 08/29/21 00:00 36.0 C L 78 32 H 143/93 H 90 L - Problem List & Annotations (1) Acute respiratory failure due to COVID-19 SNOMED Code(s): 944016265 Code(s): U07.1 - COVID-19; J96.00 - ACUTE RESPIRATORY FAILURE, UNSP W HYPOXIA OR HYPERCAPNIA Status: Acute Priority: High Current Visit: Yes (2) Hypoxia SNOMED Code(s): 496155287 Code(s): R09.02 - HYPOXEMIA Status: Acute Priority: High Current Visit: Yes (3) Lactic acidosis SNOMED Code(s): 25006603 Code(s): E87.2 - ACIDOSIS Status: Resolved Priority: High Current Visit: Yes (4) Pneumonia due to COVID-19 virus SNOMED Code(s): 645158865505172535 Code(s): U07.1 - COVID-19; J12.82 - PNEUMONIA DUE TO CORONAVIRUS DISEASE 2019 Status: Acute Priority: High Current Visit: Yes (5) Pulmonary embolism SNOMED Code(s): 92672606 Code(s): I26.99 - OTHER PULMONARY EMBOLISM WITHOUT ACUTE COR PULMONALE Status: Acute Priority: High Current Visit: Yes Qualifiers: Pulmonary embolism type: multiple subsegmental (without acute cor pulmonale) Qualified Code(s): I26.94 - Multiple subsegmental pulmonary emboli without acute cor pulmonale - My Orders Last 24 Hours: My Active Orders 08/28/21 09:00 dexAMETHasone 6 mg PO DAILY 08/28/21 10:00 Remdesivir 100 mg Sodium Chloride 0.9% [Normal Saline] 100 ml IV Q24H 08/29/21 07:33 COMPREHENSIVE METABOLIC PN,CMP [CHEM] Routine CRP [C-REACTIVE PROTEIN] [CHEM] Routine 08/29/21 08:10 CXR [Chest 1V Frontal] [CR] Routine - Plan Plan:: The patient is a 56-year-old gentleman who has COVID-19 pneumonia with acute respiratory failure. Admitted the patient to the intensive care unit on telemetry. I have reviewed the patient's chest x-ray and concerned about his work of breathing as well as possible ARDS. The patient will have his oxygen titrated to keep his saturations around 92%. The patient has been started on remdesivir in the emergency department and I started the patient on remdesivir 100 mg IV daily. Patient is also been started on dexamethasone 6 mg p.o. daily to start tomorrow. The patient also has been started on baricitinib 4 mg p.o. daily. The patient also has multiple subsegmental pulmonary emboli and he has been started on apixaban 10 mg p.o. twice daily. Repeat laboratory studies have been ordered for the morning. The patient will have regular diet as tolerated. RT will help the patient with incentive spirometer. I spoke with patient to provide information about baricitinib. I offered the "fax sheet for patients and parents/caregivers, for baricitinib" to read and review. I stated that therapy has been approved by an emergency use authorization process and has not fully been FDA reviewed or approved. I shared potential risks from the therapy including increased risk for serious infections, anaphylaxis, and reaction to medication. I discussed there are other potential treatment options that are currently not FDA approved to treat COVID-19. Offered opportunity to ask questions and all questions were answered. Patient voiced understanding and agreed to proceed with treatment. 08/28/2021 The patient is a 56-year-old gentleman who has COVID-19 pneumonia with bilateral pulmonary emboli will remain in the ICU. He has been recommended to continue prone to help keep his saturations up. Patient is also on remdesivir to be continued. He is also on baricitinib and he has been able to tolerate these. Patient has steroids dexamethasone 6 mg p.o. daily. Repeat laboratory studies have been ordered for the morning. The patient will have repeat chest x-ray. The patient has been recommended to continue with his diet as tolerated. He is also to ambulate as he can in the room. Upon discharge the patient will need to have long-term anticoagulation for at least 6 to 9 months. He will need to have close follow-up with primary care physician.
[2021-08-29] MEDS ORDERED: LORazepam 0.5 MG Tab PO PRN (09:01)
[2021-08-29] MEDS: Apixaban 5 MG Tab PO SCH (09:10)
[2021-08-29] MEDS: Dexamethasone 4 MG Tab PO SCH (09:10)
--- NOTE | 2021-08-29 09:19 | CR ---
Chest: Portable view of the chest was obtained. Comparison: Prior chest CT study of 08/27/21 and chest x-ray also performed on 08/27/21. Increased density is seen within both sides of the chest. Findings have worsened from prior exam. Heart size and mediastinum are stable. Bony structures show nothing acute. Impression: 1. Worsening increased density within both sides of the chest compatible with worsening COVID pneumonia. Diagnostic code #3
--- NOTE | 2021-08-29 10:45 | PCM.DCSUM1 ---
Discharge Summary - Hospital Course Diagnosis: Stroke: No - Discharge Data Discharge Date: 08/29/21 Discharge Disposition: DC/Tfer to Acute Hospital 02 Condition: Serious - Referral to Home Health Primary Care Physician: PCP None - Discharge Diagnosis/Problem(s) (1) Acute respiratory failure due to COVID-19 SNOMED Code(s): 228192103 ICD Code: U07.1 - COVID-19; J96.00 - ACUTE RESPIRATORY FAILURE, UNSP W HYPOXIA OR HYPERCAPNIA Status: Acute Priority: High Current Visit: Yes (2) Hypoxia SNOMED Code(s): 935422131 ICD Code: R09.02 - HYPOXEMIA Status: Acute Priority: High Current Visit: Yes (3) Lactic acidosis SNOMED Code(s): 05914699 ICD Code: E87.2 - ACIDOSIS Status: Resolved Priority: High Current Visit: Yes (4) Pneumonia due to COVID-19 virus SNOMED Code(s): 520672045793311119 ICD Code: U07.1 - COVID-19; J12.82 - PNEUMONIA DUE TO CORONAVIRUS DISEASE 2019 Status: Acute Priority: High Current Visit: Yes (5) Pulmonary embolism SNOMED Code(s): 72891058 ICD Code: I26.99 - OTHER PULMONARY EMBOLISM WITHOUT ACUTE COR PULMONALE Status: Acute Priority: High Current Visit: Yes Qualifiers: Pulmonary embolism type: multiple subsegmental (without acute cor pulmonale) Qualified Code(s): I26.94 - Multiple subsegmental pulmonary emboli without acute cor pulmonale - Patient Summary/Data Hospital Course: The patient is a 56-year-old gentleman who was admitted to intensive care unit on August 27, 2021 due to COVID-[address] angiogram obtained through the emergency department also showed bilateral segmental pulmonary emboli. The patient was started on remdesivir 200 mg initially followed by 100 mg IV daily. The patient also had been started on dexamethasone 6 mg p.o. on a daily basis. Because of the severity of his pneumonia and his hypoxemia on blood gas the patient was started on baricitinib 4 mg daily. The patient also had been started on ceftriaxone 2 g IV daily basis to help exclude superimposed bacterial infection. The patient tolerated these medications well. The patient also had as needed Ativan to 0.5 mg p.o. as needed for anxiety. Because of the patient's pulmonary emboli he had been started on apixaban 10 mg p.o. twice daily. The patient has been on high flow oxygen FiO2 of 85. If the patient is not prone he will quickly desaturate in spite of the high flow oxygen. The patient had a blood gas completed which showed a pH of 7.45, PaCO2 was at 30.3 mmHg, PaO2 was at 60 mmHg and his base excess was at 91.8. Repeat chest x-ray obtained on August 29, 2021 showed marked worsening of his COVID-19 pneumonia. Patient's work of breathing has also been significant around 40 to 45 breaths/min when not prone. The patient has been discharged to tertiary care hospitalization at [facility] with Dr. Baez investigative research specialist [facility]. - Patient Instructions Diet: Usual Diet as Tolerated Activity: As Tolerated - Discharge Plan *PRESCRIPTION DRUG MONITORING PROGRAM REVIEWED*: Not Applicable *COPY OF PRESCRIPTION DRUG MONITORING REPORT IN PATIENT RODY: Not Applicable Home Medications: Home Meds Apixaban [Eliquis] 10 mg PO BID tablet 08/29/21 [Rx] Baricitinib [Olumiant] 4 mg PO Q24H tablet 08/29/21 [Rx] Docusate Sodium [Colace] 100 mg PO BID PRN cap 08/29/21 [Rx] LORazepam [Ativan] 0.5 mg PO Q6H PRN tablet 08/29/21 [Rx] Ondansetron [Zofran ODT] 4 mg PO Q4H PRN tab.dis 08/29/21 [Rx] Remdesivir 100 mg IV Q24H vial 08/29/21 [Rx] cefTRIAXone [Rocephin] 2 gm IV Q24H adv 08/29/21 [Rx] dexAMETHasone [Dexamethasone] 6 mg PO DAILY tablet 08/29/21 [Rx] Oxygen Therapy Mode: High Flow Humidification FiO2: 85 Patient Handouts: COVID-19, Pulmonary Embolism, COVID-19: How to Protect Yourself and Others - CDC, Apixaban oral tablets, Sepsis, Self Care, Adult Forms: ED Department Discharge Referrals: PCP,None [Primary Care Provider] - - Discharge Summary/Plan Comment DC Time >30 min.: Yes Total # of Minutes for Discharge Time: 65 - General Info Date of Service: 08/29/21 Admission Dx/Problem (Free Text: Acute respiratory failure due to COVID-19 pneumonia with bilateral pulmonary emboli. Subjective Update: Overall, the patient says that his shortness of breath is worse. He is having trouble taking a deep breath. Functional Status: Reports: Pain Controlled, Tolerating Diet - Review of Systems General: Reports: Fatigue HEENT: Reports: No Symptoms Pulmonary: Reports: Shortness of Breath, Cough Cardiovascular: Reports: No Symptoms Gastrointestinal: Reports: No Symptoms Genitourinary: Reports: No Symptoms Musculoskeletal: Reports: No Symptoms Skin: Reports: No Symptoms Neurological: Reports: No Symptoms Psychiatric: Reports: Anxiety - Patient Data Vitals - Most Recent: Last Vital Signs Temp 36.3 C 08/29/21 04:00 Pulse 72 08/29/21 04:00 Resp 33 H 08/29/21 04:00 BP 122/74 08/29/21 04:00 Pulse Ox 90 L 08/29/21 08:27 Weight - Most Recent: 90.174 kg I&O - Last 24 hours: Intake & Output 08/28/21 08/29/21 08/29/21 22:59 06:59 14:59 Intake Total 2132 799 Output Total 750 550 Balance 1382 249 Lab Results - Last 24 hrs: Laboratory Results - last 24 hr 08/29/21 08/29/21 08/29/21 Range/Units 07:33 07:33 08:16 WBC 12.26 H (4.23-9.07) K/mm3 RBC 4.66 (4.63-6.08) M/mm3 Hgb 13.7 (13.7-17.5) gm/dl Hct 40.6 (40.1-51.0) % MCV 87.1 (79.0-92.2) fl MCH 29.4 (25.7-32.2) pg MCHC 33.7 (32.2-35.5) g/dl RDW Std Deviation 45.6 H (35.1-43.9) fL Plt Count 252 (163-337) K/mm3 MPV 10.2 (9.4-12.3) fl Neut % (Auto) 89.1 H (34.0-67.9) % Lymph % (Auto) 7.2 L (21.8-53.1) % [place] % (Auto) 2.4 L (5.3-12.2) % Eos % (Auto) 1.1 (0.8-7.0) Baso % (Auto) 0.0 L (0.1-1.2) % Neut # (Auto) 10.91 H (1.78-5.38) K/mm3 Lymph # (Auto) 0.88 L (1.32-3.57) K/mm3 [place] # (Auto) 0.30 (0.30-0.82) K/mm3 Eos # (Auto) 0.14 (0.04-0.54) K/mm3 Baso # (Auto) 0.00 L (0.01-0.08) K/mm3 Manual Slide Review Abnormal smear Puncture Site Rt radial ABG pH 7.45 (7.35-7.45) ABG pCO2 30.3 L (35.0-45.0) mmHg ABG pO2 60.0 L (80.0-100.0) mmHg ABG HCO3 20.7 L (22.0-26.0) meq/L ABG O2 Saturation 91.8 L (96.0-97.0) % ABG Base Excess -1.7 (-2-2.0) Antonio Test Positive A-a Gradient 508 mmHg O2 Delivery Device Hiflow nasal cannula Oxygen Flow Rate 55.0 FiO2 85.00 (21.00-100.00) % Sodium 143 (136-145) mEq/L Potassium 4.0 (3.5-5.1) mEq/L Chloride 108 H (98-107) mEq/L Carbon Dioxide 26 (21-32) mEq/L Anion Gap 13.0 (5-15) BUN 20 H (7-18) mg/dL Creatinine 0.8 (0.7-1.3) mg/dL Est Cr Clr Drug Dosing 97.54 mL/min Estimated GFR (MDRD) > 60 (>60) mL/min BUN/Creatinine Ratio 25.0 H (14-18) Glucose 84 (70-99) mg/dL Calcium 7.7 L (8.5-10.1) mg/dL Total Bilirubin 0.5 (0.2-1.0) mg/dL AST 38 H (15-37) U/L ALT 62 (16-63) U/L Alkaline Phosphatase 53 (46-116) U/L C-Reactive Protein 5.4 H* (<1.0) mg/dL Total Protein 6.0 L (6.4-8.2) g/dl Albumin 2.1 L (3.4-5.0) g/dl Globulin 3.9 gm/dL Albumin/Globulin Ratio 0.5 L (1-2) Med Orders - Current: Current Medications Acetaminophen (Acetaminophen 325 Mg Tab) 650 mg PO Q4H PRN PRN Reason: Pain (Mild 1-3)/fever Albuterol/Ipratropium (Albuterol/Ipratropium 3.0-0.5 Mg/3 Ml Neb Soln) 3 ml NEB Q4H PRN PRN Reason: Shortness Of Breath/wheezing Last Admin: 08/29/21 08:06 Dose: 3 ml Documented by: Apixaban (Apixaban 5 Mg Tab) 10 mg PO BID [facility] Last Admin: 08/29/21 09:10 Dose: 10 mg Documented by: Baricitinib (Baricitinib 2 Mg Tab) 4 mg PO Q24H [facility] Stop: 09/09/21 15:01 Last Admin: 08/28/21 14:29 Dose: 4 mg Documented by: Dexamethasone (Dexamethasone 4 Mg Tab) 6 mg PO DAILY [facility] Last Admin: 08/29/21 09:10 Dose: 6 mg Documented by: Docusate Sodium (Docusate Sodium 100 Mg Cap) 100 mg PO BID PRN PRN Reason: Constipation Remdesivir 100 mg/ Sodium (Chloride) 100 mls @ 100 mls/hr IV Q24H [facility] Stop: 08/31/21 10:59 Last Admin: 08/28/21 09:40 Dose: 100 mls/hr Documented by: Ceftriaxone Sodium 2 gm/ (Sodium Chloride) 100 mls @ 200 mls/hr IV Q24H [facility] Last Admin: 08/28/21 14:27 Dose: 200 mls/hr Documented by: Sodium Chloride (Normal Saline) 1,000 mls @ 75 mls/hr IV [facility] Last Admin: 08/28/21 22:41 Dose: 75 mls/hr Documented by: Lorazepam (Lorazepam 0.5 Mg Tab) 0.5 mg PO Q6H PRN PRN Reason: Anxiety Last Admin: 08/29/21 09:10 Dose: 0.5 mg Documented by: Ondansetron HCl (Ondansetron 4 Mg Tab.Dis) 4 mg PO Q4H PRN PRN Reason: nausea, able to take PO Oxycodone HCl (Oxycodone 5 Mg Tab) 5 mg PO Q4H PRN PRN Reason: Pain (moderate 4-6) Sodium Chloride (Sodium Chloride 0.9% 10 Ml Syringe) 10 ml FLUSH ONETIME PRN PRN Reason: IV FLUSH Last Admin: 08/27/21 08:49 Dose: 10 ml Documented by: Temazepam (Temazepam 15 Mg Cap) 15 mg PO BEDTIME PRN PRN Reason: Sleep Discontinued Medications Acetaminophen (Acetaminophen 325 Mg Tab) 650 mg PO NOW ONE Stop: 08/27/21 08:07 Last Admin: 08/27/21 08:22 Dose: 650 mg Documented by: Apixaban (Apixaban 5 Mg Tab) 10 mg PO ONETIME ONE Stop: 08/27/21 09:22 Last Admin: 08/27/21 10:08 Dose: 10 mg Documented by: Dexamethasone (Dexamethasone 4 Mg/Ml 5 Ml Mdv) 6 mg IV ONETIME ONE Stop: 08/27/21 08:36 Last Admin: 08/27/21 09:20 Dose: 6 mg Documented by: Dextrose/Sodium Chloride (Dextrose 5%-Normal Saline) 1,000 mls @ 250 [facility]ls[facility] Last Admin: 08/27/21 08:22 Dose: 250 mls/hr Documented by: Sodium Chloride (Normal Saline) 100 mls @ [facility] Last Admin: 08/27/21 08:50 Dose: 75 mls/hr Documented by: Remdesivir 200 mg/ Sodium (Chloride) 250 mls @ 250 mls/hr IV ONETIME ONE Stop: 08/27/21 08:37 Last Admin: 08/27/21 10:20 Dose: 250 mls/hr Documented by: Iopamidol (Iopamidol 755 Mg/Ml 100 Ml Bottle) 100 ml IVPUSH ONETIME ONE Stop: 08/27/21 08:06 Last Admin: 08/27/21 08:49 Dose: 100 ml Documented by: Morphine Sulfate (Morphine 2 Mg/Ml Syringe) 2 mg IVPUSH Q2H PRN PRN Reason: Pain (severe 7-10) Stop: 08/28/21 13:10 - Exam Quality Assessment: Reports: Supplemental Oxygen (High flow oxygen 85% FiO2), DVT Prophylaxis (Eliquis 10 mg p.o. twice daily) General: Reports: Alert, Oriented, Cooperative, Mild Distress HEENT: Reports: Pupils Equal, Pupils Reactive, EOMI Neck: Reports: Supple, Trachea Midline Lungs: Reports: Decreased Breath Sounds (Markedly decreased, poor air exchange), Crackles (Scattered), Other (Tachypneic) Cardiovascular: Reports: Regular Rate, Regular Rhythm GI/Abdominal Exam: Normal Bowel Sounds, Soft, No Distention (Male) Exam: Deferred Rectal (Males) Exam: Deferred Back Exam: Reports: Normal Inspection, Full Range of Motion Extremities: Normal Inspection, Normal Range of Motion, No Pedal Edema Skin: Reports: Warm, Dry, Intact Neurological: Reports: No New Focal Deficit Psy/Mental Status: Reports: Anxious
[2021-08-29] MEDS: REMDESIVIR 100 MG in Sodium Chloride 0.9% 100 ML IV SCH (10:48)
[2021-08-29 12:14] VITALS: PULSE 98
[2021-08-29 14:52] VITALS: BP 130/92
== END 2021-08-29 13:15 | DRG 177 ==
LOC: JD.ED 06:25 → JD.ICU 13:10 → UNDOADMIN 13:10
PROVIDERS: ADMIT Internal Medicine; ATTEND Internal Medicine
PROC: XW033E5 Introduction of Remdesivir Anti-infective into Peripheral Vein, Percutaneous Approach, New Technology Group 5 (ICD-10-PCS; principal; 2021-08-27)
PROC: 3E0333Z Introduction of Anti-inflammatory into Peripheral Vein, Percutaneous Approach (ICD-10-PCS; 2021-08-27)
PROC: 3E0DX3Z Introduction of Anti-inflammatory into Mouth and Pharynx, External Approach (ICD-10-PCS; 2021-08-27)
PROC: XW0DXM6 Introduction of Baricitinib into Mouth and Pharynx, External Approach, New Technology Group 6 (ICD-10-PCS; 2021-08-27)
PROC: 5A0945A Assistance with Respiratory Ventilation, 24-96 Consecutive Hours, High Flow/Velocity Cannula (ICD-10-PCS; 2021-08-27)
DX: U07.1 COVID-19 (principal); J96.01 Acute respiratory failure with hypoxia; J12.82 Pneumonia due to coronavirus disease 2019; I26.94 Multiple subsegmental thrombotic pulmonary emboli without acute cor pulmonale; E87.2 Acidosis
CPT/HCPCS: 0240U; 36415; 36600; 71045; 71045-26; 71275; 71275-26; 80053; 82803; 83605; 83615; 83735; 83880; 84484; 85025; 85379; 86140; 93005; 94640; 94667; 94668; 96374; 99285-25; A9270-GY; J0696; J1100; J7030; J7042; J7050; J7620-GY; J8540; Q9967